=== PATIENT | female | born 1970 ===

== ENCOUNTER → 2020-03-21 13:18 | Outpatient (BNVA) | payer OTHER, SELFPAY | PROVIDERS: Visit Provider Obstetrics & Gynecology | DX: Z76.89 Persons encountering health services in other specified circumstances (principal) ==

== ENCOUNTER 2020-08-21 13:02 | Outpatient (REF) | payer OTHER, SELFPAY ==
--- NOTE | ~2020-08-21 | MM_ITS ---
EXAMINATION: MM SCREENING DIGITAL BREAST TOMOSYNTHESIS, BILATERAL CLINICAL INFORMATION: Screening. Asymptomatic. The lifetime risk of breast cancer based on the Tyrer-Cuzick Model is 7%. COMPARISON: Mammography: 03/05/2019, 07/05/2016 TECHNIQUE: Digital breast tomosynthesis is performed in both the craniocaudal and mediolateral oblique views along with computer-aided detection (CAD). Synthesized 2D images are generated from the tomosynthesis. FINDINGS: There are scattered areas of fibroglandular density (ACR BI-RADS breast composition Category b). There is fine fibronodular parenchymal pattern. Left breast shows no interval mass or architectural abnormality or developing density. Neither breast shows abnormal calcifications. The bilateral axilla and skin contours are unremarkable. Right CC view has small nodular asymmetric density just lateral to posterior nipple line, 5 cm from nipple, without definite correlate on MLO view. Patient will be recalled for additional imaging. MM/MM tomosynthesis screening BI IMPRESSION: 1. Right: Small asymmetric density 5 cm from nipple just lateral to posterior nipple line on CC view. 2. Left: No mammographic evidence of malignancy. ASSESSMENT: BI-RADS 0: Incomplete - Need Additional Imaging Evaluation RECOMMENDATION: 1. Additional views of the right breast (3D rolled CC x 2; 3D spot CC). 2. Targeted ultrasound if warranted after review of the additional views. 3. Radiology department staff will contact the patient for additional imaging. This patient's information was entered into a reminder system with a target due date for their next mammogram.
== END 2020-08-21 13:03 | disposition home or self-care (01) ==
LOC: HO.MAMMO 13:02
PROVIDERS: PCP Internal Medicine; Visit Provider Obstetrics & Gynecology
DX: Z12.31 Encounter for screening mammogram for malignant neoplasm of breast (principal)
CPT/HCPCS: 77063; 77067

== ENCOUNTER 2020-09-01 14:38 | Outpatient (REF) | payer OTHER, SELFPAY ==
--- NOTE | ~2020-09-01 | US_ITS ---
EXAMINATION: US DIAGNOSTIC ULTRASOUND BREAST, RIGHT CLINICAL INFORMATION: Right breast density. COMPARISON: Mammography of same day as well as studies dating back to July 05, 2016. TECHNIQUE: Ultrasound of the breast is performed with real-time rahman scale imaging and color Doppler. FINDINGS: Targeted right breast ultrasound was performed at approximately the 9:00 position 4 cm from nipple there is a minimally complex cyst measuring 5 x 2 x 4 mm in size. There is mildly increased through sound transmission. No distal sound shadowing is seen. Results are provided to the patient at time of visit by the technologist. US/US breast RT limited IMPRESSION: Probable benign findings of the right breast as described for which six-month follow-up ultrasound evaluation as well as spot magnification views are recommended. ASSESSMENT: BI-RADS 3: Probably Benign RECOMMENDATION: Diagnostic mammography in 6 months.
--- NOTE | ~2020-09-01 | MM_ITS ---
EXAMINATION: MM DIAGNOSTIC DIGITAL BREAST TOMOSYNTHESIS, RIGHT TARGETED RIGHT BREAST ULTRASOUND CLINICAL INFORMATION: Density. COMPARISON: Mammography: 08/21/2020 and studies dating back to 07/05/2016. TECHNIQUE: Digital breast tomosynthesis is performed. 2D images are generated from the tomosynthesis. The following views are obtained: Spot compression craniocaudal views and full-field craniocaudal rolled medial and lateral views. Spot magnification views of the right breast in craniocaudal and 90 degree mediolateral views. Targeted right breast ultrasound. FINDINGS: The breasts are heterogeneously dense, which may obscure small masses (ACR BI-RADS breast composition Category c). Mammography shows persistence of an approximately 6 mm in diameter well-circumscribed density lying approximately 5 cm from the nipple. No associated spiculation or microcalcifications are seen. There is also noted to be a grouping of microcalcifications about the upper outer aspect of the right breast for which supplementary films are performed. The calcifications appear to have been present to some degree dating back to 07/05/2016 but are more evident now. Six-month followup is recommended. Targeted right breast ultrasound was performed at approximately the 9 o'clock position 4 cm from the nipple. There is a minimally complex cyst measuring 5 x 2 x 4 mm in size. There is mildly increased through sound transmission. No distal sound shadowing is seen. Results are provided to the patient at time of visit by the technologist. MM/MM tomosynthesis added views R IMPRESSION: Probable benign findings of the right breast as described for which six-month follow-up ultrasound evaluation as well as spot magnification views are recommended. ASSESSMENT: BI-RADS 3: Probably Benign. RECOMMENDATION: Diagnostic mammography in 6 months. This patient's information was entered into a reminder system with a target due date for their next mammogram.
== END 2020-09-01 14:39 | disposition home or self-care (01) ==
LOC: HO.MAMMO 14:38
PROVIDERS: Visit Provider Obstetrics & Gynecology
DX: R92.2 Inconclusive mammogram (principal)
CPT/HCPCS: 76642; 77061; 77065

== ENCOUNTER 2021-01-29 15:28 | Emergency (ER) | payer OTHER, SELFPAY ==
[2021-01-29 15:56] VITALS: BP 124/80; PULSE 78; RESP 16; TEMP 37.1; O2SAT 99; BMI 32.5
[2021-01-29] MEDS: Ondansetron ODT 4 MG TAB.RAPDIS TRANSLINGU (16:00)
[2021-01-29] MEDS: Acetaminophen 325 MG TABLET 650 MG PO (17:10)
== END 2021-01-29 20:37 | disposition left against medical advice (07) ==
PROVIDERS: Emergency Provider Emergency Medicine; PCP Internal Medicine
DX: R10.9 Unspecified abdominal pain (principal)
CPT/HCPCS: 99283

== ENCOUNTER 2021-03-15 17:00 | Emergency (ER) | payer OTHER, SELFPAY ==
--- NOTE | ~2021-03-15 | CT_ITS ---
EXAMINATION: NONCONTRAST HEAD CT NONCONTRAST MAXILLOFACIAL CT NONCONTRAST CERVICAL SPINE CT INDICATION INFORMATION: Chest pain. Syncopal episode. COMPARISON: None. TECHNIQUE: Separate noncontrast CT examinations of the head, maxillofacial bones, and cervical spine were performed. Coronal and sagittal images were created for each examination at the technologist workstation. This CT examination was performed using dose optimization techniques as appropriate, variously including the following: *Automated exposure control *Adjustment of mA and/or kV according to patient size (this includes techniques or standardized protocols for targeted exams where dose is matched to indication/reason for exam; i.e. extremities or head) *Use of iterative reconstruction technique DLP: 265 mGy-cm FINDINGS: Head: There is no evidence of acute intracranial hemorrhage or territorial infarction. No abnormal mass effect or midline shift is seen. Child to white matter differentiation is well preserved. No extra-axial fluid collections are identified. No hydrocephalus. No significant volume loss. There is no abnormal attenuation within the brain parenchyma. No acute soft tissue abnormality. No calvarial fracture. The mastoid air cells are well aerated. Maxillofacial: No acute maxillofacial fractures are seen. There is mucosal thickening of the paranasal sinuses and ethmoid air cells. Other paranasal sinuses and the mastoids are clear. The mandibular heads are well-seated in the condylar fossa. The orbits demonstrate a normal appearance bilaterally. The globes are intact, and there are no suspicious findings to suggest retrobulbar hemorrhage. Cervical spine: There is straightening of the normal cervical lordosis with anatomic alignment of the vertebral bodies and posterior elements. The atlantoaxial and atlantooccipital articulations are intact. Vertebral body heights are maintained. There is multilevel intervertebral disc space narrowing with endplate osteophyte formation and facet arthropathy. No evidence of acute fracture. No prevertebral soft tissue swelling. There is biapical pleural thickening/scarring. There is a multinodular goiter with a dominant lesion in the right lobe measuring up to 3.3 cm and a dominant lesion in the left lobe of the thyroid measuring up to 2.[address]/CT cervical spine wo con IMPRESSION: No acute intracranial abnormalities. No acute maxillofacial fractures. No acute cervical spinal fractures or subluxation. Incidentally noted is made of a multinodular goiter. Further evaluation with a nonemergent thyroid ultrasound is recommended.
--- NOTE | ~2021-03-15 | CT_ITS ---
EXAMINATION: CT ANGIOGRAM OF THE CHEST WITH AND WITHOUT CONTRAST (CT PULMONARY ANGIOGRAM FOR PE) CLINICAL INFORMATION: Sudden onset chest pain and syncope. COMPARISON: Thyroid ultrasound dated 01/11/2016. TECHNIQUE: Prior to contrast administration, noncontrast localization images were obtained. Subsequently, multidetector volumetric imaging was performed from the thoracic inlet to below the diaphragms following the administration of 85 mL Omnipaque 350 intravenous contrast. No contrast reaction reported. Sagittal, coronal, and MIP oblique sagittal reformatted images were obtained on the CT workstation, uploaded to PACS, and reviewed. This CT examination was performed using dose optimization techniques as appropriate, variously including the following: *Automated exposure control *Adjustment of mA and/or kV according to patient size (this includes techniques or standardized protocols for targeted exams where dose is matched to indication/reason for exam; i.e. extremities or head) *Use of iterative reconstruction technique Total exam dose-length product 680 mGy-cm FINDINGS: QUALITY OF STUDY/CONTRAST BOLUS: Satisfactory. PULMONARY ARTERIES: No central or segmental pulmonary emboli. THORACIC AORTA: No aneurysm or dissection. LUNG: No focal consolidation, nodules or masses. PLEURA: No pleural effusion or pneumothorax. MEDIASTINUM: Normal heart size. No pericardial effusion. No hilar or mediastinal lymphadenopathy. No evidence of septal bowing or right heart strain. Multiple bilateral thyroid nodules which appear to have increased in size when compared to the ultrasound from 2016. CHEST WALL/AXILLA: No axillary or internal mammary lymphadenopathy. OSSEOUS STRUCTURES: No acute or suspicious osseous abnormality. UPPER ABDOMEN: Unremarkable. No reflux of contrast into the hepatic veins to suggest elevated right heart pressures. CT/CT angio chest PE protocol IMPRESSION: 1. No CT angiographic evidence of acute pulmonary embolism. 2. No pulmonary nodule, mass, or airspace consolidation. 3. Multiple bilateral thyroid nodules which appear to have increased in size when compared to the ultrasound from 2016. Nonemergent follow-up thyroid ultrasound could help further evaluate. VTE: Negative
--- NOTE | ~2021-03-15 | CT_ITS ---
EXAMINATION: CT ABDOMEN AND PELVIS WITH CONTRAST CLINICAL INFORMATION: Abdominal pain COMPARISON: None TECHNIQUE: Multidetector volumetric images were obtained from the superior aspect of the liver through the pubic symphysis following administration 85 mL of Omnipaque 350 intravenous contrast. Sagittal and coronal reformatted images were obtained on the technologist's workstation. Oral contrast: No This CT examination was performed using dose optimization techniques as appropriate, variously including the following: *Automated exposure control *Adjustment of mA and/or kV according to patient size (this includes techniques or standardized protocols for targeted exams where dose is matched to indication/reason for exam; i.e. extremities or head) *Use of iterative reconstruction technique DLP: 970 mGy-cm FINDINGS: LUNG BASES: The visualized lung bases are unremarkable. LIVER, GALLBLADDER, AND BILIARY TREE: The liver is normal in size, shape, and attenuation. No focal hepatic lesion or biliary ductal dilatation is present. The gallbladder is either surgically absent or collapsed. PANCREAS: Unremarkable. SPLEEN: Unremarkable. ADRENAL GLANDS: Unremarkable. KIDNEYS AND URETERS: The kidneys are normal in size, shape, and attenuation. No hydronephrosis, hydroureter, or calculi seen. No perinephric stranding. BLADDER: Unremarkable. GASTROINTESTINAL TRACT: Small and large bowel loops are unremarkable. The appendix is surgically absent. ABDOMINAL WALL: No significant hernia is appreciated. LYMPH NODES: Normal. VASCULAR: Unremarkable. PELVIC VISCERA: Unremarkable. OSSEOUS STRUCTURES: Unremarkable. CT/CT abdomen pelvis w con IMPRESSION: No significant abnormality. Fleischner guidelines were followed.
--- NOTE | 2021-03-15 17:09 | ECG_ITS ---
Test Reason : fall Blood Pressure : / mmHG Vent. Rate : 077 BPM Atrial Rate : 077 BPM P-R Int : 162 ms QRS Dur : 084 ms QT Int : 404 ms P-R-T Axes : 022 051 016 degrees QTc Int : 457 ms Normal sinus rhythm Nonspecific T wave abnormality Inferior leads Abnormal ECG No previous ECGs available Referred By: Yohana Tyler Electronically Signed By:YAQUELIN MITCHELL MD
[2021-03-15 17:10] VITALS: BP 123/80; PULSE 78; RESP 19; TEMP 36.6; O2SAT 99; BMI 31.1
[2021-03-15] MEDS: 0.9 % Sodium Chloride 1,000 ML 999 ML IVCONT (17:19)
[2021-03-15 17:38] LABS: Basophils Percent Auto 0.2 % (0-2); Eosinophils Absolute Auto 0.2 X10*3/uL (0.0-0.4); Hematocrit 38.1 % (37.0-47.0); Hemoglobin 12.6 g/dl (12.0-16.0); Imm Gran Abs Auto 0.03 X10*3/uL (0.00-0.03); Imm Gran Pct Auto 0.4 % (0.0-0.4); Lymphocytes Absolute Auto 3.2 X10*3/uL (1.2-4.9); Lymphocytes Percent Auto 39.7 % (20-40); Mean Corpuscular HGB Conc 33.1 g/dl (31.0-35.0); Mean Corpuscular Hemoglobin 28.9 pg (27.0-33.0); Mean Corpuscular Volume 87.4 fL (80.0-98.0); Mean Platelet Volume 10.4 fL (9.4-12.3); Monocytes Absolute Auto 0.6 X10*3/uL (0.1-1.2); Monocytes Percent Auto 7.7 % (2-11); Neutrophils Absolute Auto 3.9 x10*3/uL (2.0-8.3); Platelet Count 329 X10*3/uL (160-400); Red Blood Count 4.36 X10*6/uL (4.20-5.50); Red Cell Distribution Width 15.6 % (11.0-16.0)
[2021-03-15 17:39] LABS: MANUAL DIFF FLAG NO
[2021-03-15 17:49] LABS: INTERNATIONAL NORM RATIO 1.1 (0.9-1.1); Prothrombin Time 12.4 SEC (9.9-13.0)
[2021-03-15 17:55] LABS: Alanine Aminotransferase 15 U/L (0-31); Alkaline Phosphatase 68 U/L (39-117); Anion Gap 13 (12-20); Aspartate Amino Transferase 16 U/L (5-31); Bilirubin Total < 0.2 mg/dL (0.0-1.0); Blood Urea Nitrogen 15 mg/dL (9-16); Calcium 9.4 mg/dL (8.4-10.2); Carbon Dioxide 28 mmol/L (22-29); Chloride 105 mmol/L (96-108); Creatinine Clr Calc Pharmacy 62.1; Estimated Glomerular Filt Rate 56; Glucose Random 79 mg/dL (60-115); Magnesium 1.9 mg/dL (1.6-2.6); Potassium 4.1 mmol/L (3.3-5.1); Sodium 142 mmol/L (135-145)
[2021-03-15 17:57] LABS: HCG Quantitative < 2 mIU/mL
[2021-03-15 17:58] LABS: B Type Natriuretic Peptide < 10 pg/mL (<100); Troponin-I High Sensitivity < 3.5 ng/L (<3.5-17.0)
--- NOTE | 2021-03-15 18:34 | ED_ITS ---
HPI - Syncope General Chief Complaint: Syncope Stated Complaint: fall dizzy Time Seen by Provider: 03/15/21 17:05 Source: patient, family and EMS Mode of arrival: EMS Limitations: language barrier (Romanian-speaking) History of Present Illness HPI narrative: 50-year-old female with a past medical history of hyperchol esterolemia and vitamin-D deficiency presenting to the ED via EMS a C-collar in place after she developed sudden onset of chest pain while she was at home with her daughters and her /family serving Thanksgiving dinner when she started having epigastric/midsternal chest pain she tried to lean over the counter and this is the last thing she can remember. Her daughters and her report that when she went to lean on the counter she actually went down pretty hard hit her chin then she fell backwards hitting her head and she had LOC for a few seconds. She did not have prolonged downtime. She reports that she has never had this in the past. Her reports that she recently had an appendectomy approximately 1 month ago. She denies any symptoms at this time reports that she feels completely normal. She denies any dizziness, change in vision, ear pain, sore throat, cough, nasal congestion, chest pain at this time, shortness of breath, dyspnea on exertion, orthopnea, palpitations, nausea/vomiting/diarrhea, constipation, rashes, focal weakness or general weakness, recent travel or sick contacts or any other symptoms complaints or concerns at this time. Denies being on any blood thinners. 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) Prodromal symptoms: chest pain Witnessed: Yes - by Other (Daughters and ) Context: other (While she was in the kitchen with her family serving some [employer] dinner) Injuries sustained associated with event: face (Chin) Current symptoms: none and back to baseline Treatments prior to arrival: none Related Data Home Medications Medication Instructions Recorded Confirmed cholecalciferol (vitamin D3) 25 25 mcg PO DAILY 04/03/20 07/12/20 mcg (1,000 unit) tablet rosuvastatin 5 mg tablet 5 mg PO DAILY 04/03/20 07/12/20 Previous Rx's Medication Instructions Recorded meclizine 25 mg tablet 25 mg PO TID PRN 30 Days #90 tab 04/03/20 Allergies Allergy/AdvReac Type Severity Reaction Status Date / Time No Known Allergies Allergy Unverified 08/22/20 12:57 Review of Systems Review of Systems: Constitutional : No Weight loss, No Fever, No Chills, No Night Sweats, No Fatigue, No Malaise ENT/Mouth : No Hearing loss, No Ear Pain, No Nasal Congestion, No Sinus Pain, No Hoarseness, No sore throat, No Rhinorrhea, No Swallowing Difficulty Eyes: No Eye Pain, No Swelling, No Redness, No Foreign Body, No Discharge, No Vision Changes Cardiovascular : + resolved Chest pain, No SOB, No Dyspnea on Exertion, No Orthopnea, No Edema, No Palpitations Respiratory : No Cough, No Sputum, No Wheezing, No Smoke Exposure, No Dyspnea Gastrointestinal : No Nausea, No Vomiting, No Diarrhea, No Constipation, No abdominal Pain, No Hematochezia, No Melena Genitourinary : no irregular bleeding, No Dysuria, No Urinary Frequency, No Hematuria, No Urinary Incontinence, No Urgency, No Flank Pain, No Urinary Flow Changes, No Hesitancy Musculoskeletal : No joint pain, No Myalgias, No Joint Swelling Skin : No Skin Lesions, No rash Neuro : + syncopy c head injury and loc for seconds, No Weakness, No Numbness, No Paresthesias, No Dizziness, No Headache Psych : No Anxiety/Panic, No Depression, No SI/HI/AH/VH, No Social Issues, Heme/Lymph: No Bruising, No Bleeding,No Lymphadenopathy Endocrine : No Polyuria, No Polydipsia, No Temperature Intolerance Yes all other systems are reviewed and are negative [facility] Past Medical History Attestation statement: The following information was validated with the patient. Medical History Dizziness Knee pain Pure hypercholesterolemia Right knee pain Vitamin D deficiency Well woman exam Surgical History History of cholecystectomy Family History Family History Maternal Grandmother Diabetes Paternal Grandmother Hypertension Stroke Father No problems noted. Mother No problems noted. Maternal Aunt Breast cancer Sister No problems noted. Son No problems noted. Son No problems noted. Daughter No problems noted. Daughter No problems noted. Social History Social History Alcohol intake: never Advance Directives: No Advance Directives Information Provided: Yes Sexual orientation: Straight/Heterosexual Gender identity: Female Physical Exam 2 Vital Signs: Vital Signs: Last Vital Signs Temp 97.6 F 03/15/21 19:26 Pulse 73 03/15/21 19:26 Resp 18 03/15/21 19:26 BP 107/66 03/15/21 19:26 Pulse Ox 99 03/15/21 19:26 Body Mass Index 31.1 Vital signs have been reviewed as normal and appeared to be correct. Blood pressure normal. Heart rate normal. Respiration rate normal. Temperature normal. Oxygen saturation normal. Appearance: Alert. Oriented X3. No acute distress. Head: Normal external exam. Normocephalic. Atraumatic. Able to rotate head bilaterally. No Luz signs noted. No raccoon eyes noted. Eyes: PERRLA. EOMI. No nystagmus noted. Conjunctiva and sclera normal. Eyelids normal. Corneal reflex normal. ENT: EAC normal. TM's Normal. No septal hematoma noted. No hemotympanum noted. Hearing normal. Pharynx normal. Uvula midline. tongue midline. Moist mucous membranes. No trismus noted. No drooling noted. No muffled voice noted. No nystagmus noted. No dental injury is noted. Neck: Normal inspection. Neck supple. FROM. No adenopathy. Trachea midline. Thyroid Normal. No meningeal signs. No neck mass noted. Patient has no obvious signs of trauma and no tenderness although will leave C-collar on due to mechanism of injury. CVS: Normal heart rate and rhythm. Heart sound normal. No murmurs noted. Pulses normal throughout. Respiratory: No respiratory distress. Painless inspiration. Breath sounds normal. No wheezes/rales/rhonchi noted. Chest nontender. No accessory muscle u geno noted or decreased air movement noted. Abdomen: Soft and nontender. Bowel sounds normal in all 4 quadrants. No distention noted. No organomegaly noted. No visible injury noted. Back: No CVA tenderness. Full range of motion noted. Skin: Skin warm and dry. Normal skin color. Normal skin turgor. No rashes/lesions/lacerations noted. Extremities: No lower extremity edema. No calf tenderness is noted. Extremities exhibit normal range of motion. Extremities nontender. Able to shrug shoulders bilaterally and keep up against resistance. Neuro: Oriented X 3. No motor deficit. No sensory deficit. Reflexes normal. Moving all extremities. No focal motor deficits. Cranial nerves II-XI intact bilaterally. Facial strength normal. Normal cognition. Speech normal. Strength 5/5 throughout. No pronator drift. No tremor noted. No fasciculations noted. No rigidity noted. Muscle tone normal throughout. No asterixis noted. Hwysdd-op-kjns test normal. Heel to jang test normal. Rapid alternating movement upper extremity normal. Rapid alternating movement lower extremity normal. Hand drop from overhead Misses face. NIHSS score 0. Course Course Course Narrative: 17:15pm - 50-year-old female presenting to the ED via EMS a C-collar in place after she developed sudden onset of chest pain while she was at home with her daughters and her /family serving Thanksgiving dinner when she started having epigastric/midsternal chest pain she tried to lean over the counter and this is the last thing she can remember. Her daughters and her report that when she went to lean on the counter she actually went down pretty hard hit her chin then she fell backwards hitting her head and she had LOC for a few seconds. She did not have prolonged downtime. She reports that she has never had this in the past. Her reports that she recently had an appendectomy approximately 1 month ago. She denies any symptoms at this time reports that she feels completely normal. She denies being on blood thinners. Plan: CT scan of brain/cervical spine/facial bones/CTA of chest for PE, CT scan of abdomen pelvis with IV contrast, labs, EKG, orthostatics vitals then re- evaluate. Reevaluation(s) Reevaluation #1: - labs reviewed and all within normal limits including troponin. Negative test. - EKG was normal sinus rhythm no acute ischemic changes were noted. - patient will need a repeat troponin at 20:00 due to her symptoms started right before arrival. - patient pending CT scan of brain/cervical spine/facial bones/CTA of chest and CT scan abdomen pelvis IV contrast. - Sign out to KYLAH Syed pending above Time: 19:31 [facility] - Syncope Medical Records Attestation: I reviewed the patient's medical records. Lab Data Attestation: I reviewed the patient's lab results. Result diagrams: 03/15/21 17:32 03/15/21 17:32 Labs: Lab Results 03/15/21 03/15/21 03/15/21 Range/Units 17:32 17:32 17:32 WBC 8.0 (4.8-10.8) X10*3/uL RBC 4.36 (4.20-5.50) X10*6/uL Hgb 12.6 (12.0-16.0) g/dl Hct 38.1 (37.0-47.0) % MCV 87.4 (80.0-98.0) fL MCH 28.9 (27.0-33.0) pg MCHC 33.1 (31.0-35.0) g/dl RDW 15.6 (11.0-16.0) % Plt Count 329 (160-400) X10*3/uL MPV 10.4 (9.4-12.3) fL Immature Gran % (Auto) 0.4 (0.0-0.4) % Neut % (Auto) 49.0 (45-73) % Lymph % (Auto) 39.7 (20-40) % Mcintosh % (Auto) 7.7 (2-11) % Eos % (Auto) 3.0 (0-4) % Baso % (Auto) 0.2 (0-2) % Lymph # (Auto) 3.2 (1.2-4.9) X10*3/uL Mcintosh # (Auto) 0.6 (0.1-1.2) X10*3/uL Eos # (Auto) 0.2 (0.0-0.4) X10*3/uL Baso # (Auto) 0.0 (0.0-0.2) X10*3/uL Abs Immat Gran (auto) 0.03 (0.00-0.03) X10*3/uL Absolute Neuts (auto) 3.9 (2.0-8.3) x10*3/uL Absolute Nucleated RBC 0.000 (0.0-0.012) X10*3/uL Nucleated RBC % (auto) 0.0 (0.0-0.2) /100WBC PT 12.4 (9.9-13.0) SEC INR 1.1 (0.9-1.1) Sodium 142 (135-145) mmol/L Potassium 4.1 (3.3-5.1) mmol/L Chloride 105 (96-108) mmol/L Carbon Dioxide 28 (22-29) mmol/L Anion Gap 13 (12-20) BUN 15 (9-16) mg/dL Creatinine 1.03 (0.5-1.4) mg/dL Estim Creat Clear Calc 62.1 Estimated GFR 56 Random Glucose 79 (60-115) mg/dL Calcium 9.4 (8.4-10.2) mg/dL Magnesium 1.9 (1.6-2.6) mg/dL Total Bilirubin < 0.2 (0.0-1.0) mg/dL AST 16 (5-31) U/L ALT 15 (0-31) U/L Alkaline Phosphatase 68 (39-117) U/L Total Creatine Kinase 105 (26-140) U/L Troponin I High Sens (<3.5-17.0) ng/L B-Natriuretic Peptide (<100) pg/mL Total Protein 7.0 (6.5-8.0) g/dL Albumin 4.0 (3.5-5.0) g/dL Beta HCG, Quant mIU/mL 03/15/21 03/15/21 Range/Units 17:32 17:32 WBC (4.8-10.8) X10*3/uL RBC (4.20-5.50) X10*6/uL Hgb (12.0-16.0) g/dl Hct (37.0-47.0) % MCV (80.0-98.0) fL MCH (27.0-33.0) pg MCHC (31.0-35.0) g/dl RDW (11.0-16.0) % Plt Count (160-400) X10*3/uL MPV (9.4-12.3) fL Immature Gran % (Auto) (0.0-0.4) % Neut % (Auto) (45-73) % Lymph % (Auto) (20-40) % Mcintosh % (Auto) (2-11) % Eos % (Auto) (0-4) % Baso % (Auto) (0-2) % Lymph # (Auto) (1.2-4.9) X10*3/uL Mcintosh # (Auto) (0.1-1.2) X10*3/uL Eos # (Auto) (0.0-0.4) X10*3/uL Baso # (Auto) (0.0-0.2) X10*3/uL Abs Immat Gran (auto) (0.00-0.03) X10*3/uL Absolute Neuts (auto) (2.0-8.3) x10*3/uL Absolute Nucleated RBC (0.0-0.012) X10*3/uL Nucleated RBC % (auto) (0.0-0.2) /100WBC PT (9.9-13.0) SEC INR (0.9-1.1) Sodium (135-145) mmol/L Potassium (3.3-5.1) mmol/L Chloride (96-108) mmol/L Carbon Dioxide (22-29) mmol/L Anion Gap (12-20) BUN (9-16) mg/dL Creatinine (0.5-1.4) mg/dL Estim Creat Clear Calc Estimated GFR Random Glucose (60-115) mg/dL Calcium (8.4-10.2) mg/dL Magnesium (1.6-2.6) mg/dL Total Bilirubin (0.0-1.0) mg/dL AST (5-31) U/L ALT (0-31) U/L Alkaline Phosphatase (39-117) U/L Total Creatine Kinase (26-140) U/L Troponin I High Sens < 3.5 (<3.5-17.0) ng/L B-Natriuretic Peptide < 10 (<100) pg/mL Total Protein (6.5-8.0) g/dL Albumin (3.5-5.0) g/dL Beta HCG, Quant < 2 mIU/mL ECG Data Attestation: I personally reviewed and interpreted this ECG as follows: ECG interpretation date: 03/15/21 ECG interpretation time: 05:13 Interpretation: Normal sinus rhythm with a ventricular rate of 77 with a normal MT interval nonspecific T-wave inversion in lead 3 otherwise no other changes and no acute ischemic changes are noted. No prior EKGs in our system to compare to. Critical Care Time Critical Care Time Critical Care Time: Yes Total Critical Care Time: 60 Attestation: I personally attest to this time spent taking care of the patient Discharge Plan Discharge Clinical Impression: Chest pain, Abdominal pain, epigastric, Syncope, Head injury, acute, with loss of consciousness Patient Disposition: Still a Patient Prescriptions: No Action cholecalciferol (vitamin D3) 25 mcg (1,000 unit) tablet 25 mcg PO DAILY RF: 0 rosuvastatin 5 mg tablet 5 mg PO DAILY RF: 0 meclizine 25 mg tablet 25 mg PO TID PRN (Reason: dizziness) 30 Days Qty: 90 RF: 0
[2021-03-15] MEDS: iohexoL 350 MG/ML 100 ML INFUS..BTL IV (19:05)
[2021-03-15 19:26] VITALS: BP 107/66; PULSE 73; RESP 18; TEMP 36.4; O2SAT 99
[2021-03-15 20:35] LABS: Troponin-I High Sensitivity < 3.5 ng/L (<3.5-17.0)
== END 2021-03-15 21:42 | disposition home or self-care (01) ==
PROVIDERS: Physician Assistant Medical; Emergency Provider Student in an Organized Health Care Education/Training Program
DX: S06.9X1A Unspecified intracranial injury with loss of consciousness of 30 minutes or less, initial encounter (principal); W17.89XA Other fall from one level to another, initial encounter; R07.9 Chest pain, unspecified; R10.13 Epigastric pain; R55 Syncope and collapse; Y93.G1 Activity, food preparation and clean up; Y92.010 Kitchen of single-family (private) house as the place of occurrence of the external cause; Y99.9 Unspecified external cause status
CPT/HCPCS: 36415; 70450; 70486; 71275; 72125; 74177; 80053; 82550; 83735; 83880; 84484; 84702; 85025; 85610; 93005; 96360; 99284; 99291; Q9967

== ENCOUNTER → 2021-03-26 13:59 | Outpatient (BNVA) | payer OTHER, SELFPAY | PROVIDERS: PCP Internal Medicine; Visit Provider Obstetrics & Gynecology ==

== ENCOUNTER 2021-03-28 14:10 | Outpatient (REF) | payer OTHER, SELFPAY ==
--- NOTE | ~2021-03-28 | MM_ITS ---
EXAMINATION: MM DIAGNOSTIC DIGITAL BREAST TOMOSYNTHESIS, RIGHT CLINICAL INFORMATION: Six-month follow up right breast calcifications and circumscribed density. The lifetime risk of breast cancer based on the Tyrer-Cuzick Model is 10.2%. COMPARISON: Mammography: 09/01/2020 and studies dating back to 07/05/2016. TECHNIQUE: Digital breast tomosynthesis is performed in both the craniocaudal and mediolateral oblique views along with computer-aided detection (CAD). Synthesized 2D images are generated from the tomosynthesis. Additional spot magnification views in craniocaudal and 90 degree mediolateral views performed. FINDINGS: The breasts are heterogeneously dense, which may obscure small masses (ACR BI-RADS breast composition Category c). Previously noted density about the lateral aspect of the right breast is not identified on today's study and likely represented a cyst that has now resolved. Grouping of calcifications about the upper outer aspect of the right breast do not appear to have been changed since previous study. Recommend 6 month bilateral mammography with right breast magnification views for continued surveillance. Results are provided to the patient at time of visit by the technologist. MM/MM tomosynthesis diagnostic RT IMPRESSION: No significant change from previous examination with probable resolution of right breast cyst as described. Six month follow up bilateral mammography with right breast magnification views recommended. ASSESSMENT: BI-RADS 3: Probably Benign. RECOMMENDATION: Diagnostic mammography in 6 months. This patient's information was entered into a reminder system with a target due date for their next mammogram.
== END 2021-03-28 14:11 | disposition home or self-care (01) ==
LOC: HO.MAMMO 14:10
PROVIDERS: PCP Nurse Practitioner Family; Visit Provider Obstetrics & Gynecology
DX: R92.2 Inconclusive mammogram (principal)
CPT/HCPCS: 77061; 77065

== ENCOUNTER 2021-04-25 12:34 | Outpatient (REF) | payer OTHER, SELFPAY ==
--- NOTE | 2021-04-25 12:39 | EEG_ITS ---
This is a 16-channel EEG with an EKG lead. The patient is reported awake during the tracing. Background EEG rhythm during most of the tracing is 12 to 14 hertz, 5 to 50 microvolt posteriorly, lower amplitude fast anteriorly. Intermittently sharply controlled theta range, asymmetric activity was noted in the right hemispheric leads which at times was clearly sharp wave type with phase reversal at T4. It lasted 1 to few seconds at a time. Photic stimulation did not produce any significant driving. Hyperventilation was not performed. Cardiac lead did not reveal any significant abnormality. IMPRESSION: Abnormal EEG suggestive of underlying tendency for partial or complex partial seizure disorder with right temporal focus. MD THELMA Gutiérrez/AGNIESZKAL / [id number]
== END 2021-04-25 12:35 | disposition home or self-care (01) ==
LOC: HO.NEURO 12:34
PROVIDERS: Visit Provider Nurse Practitioner Family
DX: R56.9 Unspecified convulsions (principal); R55 Syncope and collapse
CPT/HCPCS: 95816

== ENCOUNTER → 2021-05-22 13:06 | Outpatient (BNVA) | payer OTHER, SELFPAY | PROVIDERS: PCP Internal Medicine; Referring Provider Nurse Practitioner Family; Visit Provider Internal Medicine | DX: R55 Syncope and collapse (principal); R07.2 Precordial pain | CPT/HCPCS: 93005; 99202 ==

== ENCOUNTER → 2021-06-07 10:39 | Outpatient (REF) | payer OTHER, SELFPAY ==
--- NOTE | 2021-06-07 10:45 | HM_ITS ---
Conclusion: 1. Patient was monitored for total period of 14 days and 15 hours 2. Baseline was normal sinus rhythm with average heart of 83 beats per minute 3. Very rare ectopy noted 4. 1 episode of Mobitz type 1 second-degree AV block noted at 16:20 on 06/20/2021 5. One pause of 2.6 seconds noted on 06/10/2021 at 04:29 6. 7 short runs of supraventricular tachycardia, longest 14 beats 7. No patient reported events MTDD
== END ==
LOC: HO.CARD 10:39
PROVIDERS: PCP Internal Medicine; Visit Provider Internal Medicine
DX: R55 Syncope and collapse (principal)
CPT/HCPCS: 93246

== ENCOUNTER 2021-06-25 09:13 | Outpatient (REF) | payer OTHER, SELFPAY ==
--- NOTE | ~2021-06-25 | XR_ITS ---
EXAMINATION: XR KNEE, LEFT CLINICAL INFORMATION: Knee pain. COMPARISON: 07/24/2017 TECHNIQUE: Three views of the left knee. FINDINGS: Alignment is anatomic. There is a moderate suprapatellar joint effusion. Mild narrowing of the medial joint space and small marginal osteophytes in all 3 compartments. No fracture. XR/XR knee LT 3V IMPRESSION: Moderate suprapatellar effusion and mild tricompartmental degenerative changes.
[2021-06-25 10:40] LABS: Alanine Aminotransferase 15 U/L (0-31); Albumin Level 3.9 g/dL (3.5-5.0); Alkaline Phosphatase 62 U/L (39-117); Anion Gap 10 (12-20); Aspartate Amino Transferase 17 U/L (5-31); Bilirubin Total 0.4 mg/dL (0.0-1.0); Blood Urea Nitrogen 7 mg/dL (9-16); Calcium 9.4 mg/dL (8.4-10.2); Carbon Dioxide 28 mmol/L (22-29); Chloride 106 mmol/L (96-108); Cholesterol 191 mg/dL; Estimated Glomerular Filt Rate > 60; Glucose Fasting 93 mg/dL (60-99); HDL Cholesterol 43 mg/dL; LDL Cholesterol Calculated 130 mg/dl; Potassium 4.3 mmol/L (3.3-5.1); Sodium 140 mmol/L (135-145); Total Protein 6.7 g/dL (6.5-8.0); Triglycerides 90 mg/dL
[2021-06-29 13:10] LABS: Vitamin D 25-OH, D2 <4 ng/mL; Vitamin D 25-OH, D3 45 ng/mL; Vitamin D 25-OH, Total 45 ng/mL (30-100)
== END 2021-06-25 09:14 | disposition home or self-care (01) ==
LOC: HO.LAB 09:13
PROVIDERS: PCP Internal Medicine; Visit Provider Internal Medicine
DX: M25.561 Pain in right knee (principal); E78.00 Pure hypercholesterolemia, unspecified; E78.5 Hyperlipidemia, unspecified; E55.9 Vitamin D deficiency, unspecified
CPT/HCPCS: 36415; 73562; 80053; 80061; 82306

== ENCOUNTER 2021-09-28 12:58 | Outpatient (REF) | payer OTHER, SELFPAY ==
--- NOTE | ~2021-09-28 | MM_ITS ---
EXAMINATION: MM DIAGNOSTIC DIGITAL BREAST TOMOSYNTHESIS, BILATERAL CLINICAL INFORMATION: Right breast calcifications. The lifetime risk of breast cancer based on the Tyrer-Cuzick Model is 14.2%. COMPARISON: Mammography: 03/28/2021 and studies dating back to 07/05/2016. TECHNIQUE: Digital breast tomosynthesis is performed in both the craniocaudal and mediolateral oblique views along with computer-aided detection (CAD). Synthesized 2D images are generated from the tomosynthesis. Additional spot magnification views of the right breast in craniocaudal and 90-degree mediolateral views performed. FINDINGS: The breasts are heterogeneously dense, which may obscure small masses (ACR BI-RADS breast composition Category c). There are no new significant masses, abnormal calcifications, or other abnormalities. There is stability of tight grouping of calcifications about the superior aspect of the right breast. Results are provided to the patient at time of visit by the technologist. MM/MM tomosynthesis diagnostic BI IMPRESSION: There are no significant changes from prior study. Recommend 6-month followup right breast mammography with spot magnification views. ASSESSMENT: BI-RADS 3: Probably Benign. RECOMMENDATION: Diagnostic mammography in 6 months. This patient's information was entered into a reminder system with a target due date for their next mammogram.
== END 2021-09-28 12:59 | disposition home or self-care (01) ==
LOC: HO.MAMMO 12:58
PROVIDERS: PCP Internal Medicine; Visit Provider Internal Medicine
DX: R92.1 Mammographic calcification found on diagnostic imaging of breast (principal)
CPT/HCPCS: 77062; 77066

== ENCOUNTER → 2021-09-28 13:49 | Outpatient (REF) | payer OTHER, SELFPAY ==
--- NOTE | 2021-09-28 13:52 | CA_ITS ---
Transthoracic Echocardiogram Patient (Last, First, Middle): Yasmin Fragoso, Gender: Female Date of : 1970 Age: 51 Procedure Date: 09/28/2021 Procedure Type: Transthoracic Echocardiogram Location: OP Height: 157.48 cm Weight: 79.38 kg BSA: 1.81 m2 Heart Rate: 63 bpm BP: 120 / 60 mmHg Medical Records Auditor: SB Referring MD: Cole Curry MD Symptoms: R55 - Syncope and collapse Study Quality: Adequate ECG Rhythm: Sinus Conclusions: - The left ventricular systolic function is normal. The calculated ejection fraction is 66% by biplane method. - No obvious valvular pathology seen on this study. Findings Left Ventricle Normal left ventricular cavity size. There is normal left ventricular wall thickness. The left ventricular systolic function is normal. The calculated ejection fraction is 66% by biplane method. There is no evidence of regional wall motion abnormalities. Diastolic function is normal for age. LV peak GLS -21.1%. Right Ventricle Normal right ventricular cavity size and systolic function. Atria Both atria are normal in size. Aortic Valve There is a normal trileaflet aortic valve. There is no aortic valve stenosis. There is no aortic valve regurgitation. Mitral Valve The mitral valve appears normal. There is trace mitral valve regurgitation. There is no mitral valve stenosis. Pulmonic Valve The pulmonic valve is likely normal. Tricuspid Valve Normal tricuspid valve structure. There is trace tricuspid valve regurgitation. The pulmonary artery systolic pressure is normal. Great Vessels The aortic annulus, sinuses of valsalva, and asc aorta are normal in size. Venous The inferior vena cava is normal in size and collapses greater than 50% with inspiration. Pericardium/Pleural There is no evidence of pericardial effusion. Prior Study Comparison No prior study available for comparison. Recommendations, Care & Conclusions No obvious valvular pathology seen on this study. Measurements 2D Linear Measurements IVSd: 0.82 0.6-0.9/0.6-1.0 cm LVIDd: 4.18 3.9-5.3/4.2-5.9 cm LVIDd Index: 2.31 2.4-3.2/2.2-3.1 cm/m2 LVIDs: 2.53 2.0-3.6 cm LVPWd: 0.74 0.7-1.1 cm LA Diam: 3.70 2.7-3.8/3.0-4.0 cm LAIDs Index: 2.04 1.5-2.3 cm/m2 LV Mass: 120.52 67-162/88-224 g LV Mass Index: 66.59 43-95/49-115 g/m2 LVOT Diam: 2.10 3.0+(-)1.3 cm 2D Systolic Function EF 4C: 64.70 >55% EF 2C: 65.40 >55% EF BiP: 66.10 >55% Mitral Valve MV Pk E: 0.67 MV PK A: 0.57 MV Decel Time: 231.00 E/A: 1.20 E'Lateral: 18.00 E'Medial: 6.20 E/E' Med: 10.80 E/E' Lat: 3.70 PHT: 68.00 MVA PHT: 3.24 Decel Jones: 2.90 Aortic Valve AoV Pk Chiki: 1.33 AoV Mn Chiki: 0.88 AoV VTI: 0.26 AoV Pk Grad: 7.00 Aov Mn Grad: 4.00 SAUNDRA Cont.VTI: 2.96 LVOT LVOT Pk Chiki: 1.27 LVOT Mn Chiki: 0.77 LVOT VTI: 0.23 LVOT Pk Grad: 6.00 LVOT Mn Grad: 3.00 LVOT Diam: 2.10 LVOT Area: 3.46 Diastolic Function MV Pk E: 0.67 MV Pk A: 0.57 E/A: 1.20 E'Medial: 6.20 E/E' Med: 10.80 E' Laterial: 18.00 E/E' Lat: 3.70 Right Ventricle TAPSE (mm): 20.80 TVS' Chiki: 12.70 Tricuspid Valve TR Pk Chiki: 2.09 TR Pk Grad: 17.00 RA Press: 3.00 RVSP: 20.00 Great Vessels Aorta Sinus of Valsalva: 2.90 2.0-3.5 cm Ao Asc: 3.10 2.1-3.4 cm Ao Arch: 2.60 Ao Desc: 1.50 Pulmonary Veins Pulm Vein S/D 1.50 Pulmonary Valve PV Pk Chiki: 0.84 Peak PV Grad: 3.00 Updated in Other Vendor System with Status of Final Cole Curry MD electronically signed on 09/29/2021 11:14:23 AM with status of Final
== END ==
LOC: HO.CARD 13:49
PROVIDERS: PCP Internal Medicine; Visit Provider Internal Medicine
DX: R55 Syncope and collapse (principal)
CPT/HCPCS: 93306; 93356

== ENCOUNTER 2021-12-27 10:27 | Outpatient (REF) | payer OTHER, SELFPAY | END 2021-12-27 10:28 | disposition home or self-care (01) | LOC: HO.LNP 10:27 | PROVIDERS: Visit Provider Obstetrics & Gynecology | DX: R10.2 Pelvic and perineal pain (principal) | CPT/HCPCS: 99212 ==

== ENCOUNTER 2021-12-27 16:27 | Outpatient (REF) | payer OTHER, SELFPAY ==
[2021-12-28 03:05] LABS: CT PCR NOT DETECTED (Not Detect.); NG PCR NOT DETECTED (Not Detect.)
== END 2021-12-27 16:28 | disposition home or self-care (01) ==
LOC: HO.LNP 16:27
PROVIDERS: Visit Provider Obstetrics & Gynecology
DX: Z11.3 Encounter for screening for infections with a predominantly sexual mode of transmission (principal); R10.2 Pelvic and perineal pain
CPT/HCPCS: 87491; 87591

== ENCOUNTER 2022-03-27 14:40 | Outpatient (REF) | payer OTHER, SELFPAY ==
--- NOTE | ~2022-03-27 | US_ITS ---
EXAMINATION: US PELVIS COMPLETE CLINICAL INFORMATION: Pelvic and perineal pain COMPARISON: Pelvic ultrasound 02/17/2019, CT abdomen pelvis 03/15/2021 TECHNIQUE: Transabdominal imaging was performed. FINDINGS: The uterus is of normal size measuring 9.2 x 5.3 x 5.1 cm. There are multiple small intramural myomas decreased in size and number with respect to prior. The largest is a 1.5 cm intramural myoma in the right body previously measuring 1.9 cm. A regular homogeneous endometrium is identified measuring 0.3 cm. Nabothian cysts in the cervix. Both ovaries are of normal size and echogenicity. The right measures 1.9 x 1.3 x 1.4 cm for a volume of 1.8 mL. The left measures 1.7 x 0.8 x 1.3 cm for a volume of 0.9 mL. The right ovary is remarkable for a 1.7 cm simple cyst for which no follow-up imaging is recommended. There is no pelvic free fluid. US/US pelvic and transvaginal IMPRESSION: Multiple small intramural myomas decreased in size and number with respect to prior measuring up to 1.5 cm. A 1.5 cm benign simple right ovarian cyst. No follow-up imaging recommended.,
== END 2022-03-27 14:41 | disposition home or self-care (01) ==
LOC: HO.US 14:40
PROVIDERS: Visit Provider Obstetrics & Gynecology
DX: R10.2 Pelvic and perineal pain (principal)
CPT/HCPCS: 76830; 76856

== ENCOUNTER 2022-03-28 14:57 | Outpatient (REF) | payer OTHER, SELFPAY ==
[2022-03-30 22:04] LABS: HPV mRNA E6/E7 rflx Not Detected (Not Detected)
== END 2022-03-28 14:58 | disposition home or self-care (01) ==
LOC: HO.LNP 14:57
PROVIDERS: Visit Provider Obstetrics & Gynecology
DX: Z01.419 Encounter for gynecological examination (general) (routine) without abnormal findings (principal); Z11.51 Encounter for screening for human papillomavirus (HPV)
CPT/HCPCS: 87624; 88142

== ENCOUNTER → 2022-05-02 13:56 | Outpatient (BNVA) | payer OTHER, SELFPAY | PROVIDERS: PCP Internal Medicine; Visit Provider Obstetrics & Gynecology | DX: D25.1 Intramural leiomyoma of uterus (principal) | CPT/HCPCS: 99212 ==

== ENCOUNTER 2022-06-05 11:57 | Outpatient (REF) | payer OTHER, SELFPAY ==
--- NOTE | ~2022-06-05 | XR_ITS ---
EXAMINATION: XR KNEE, RIGHT CLINICAL INFORMATION: Pain. COMPARISON: None TECHNIQUE: AP and lateral views of the right knee. FINDINGS: Bony alignment and mineralization are normal. The lateral, medial and patellofemoral joint space compartments are well-maintained. There is mild tricompartment peripheral osteophyte formation. No fracture, dislocation or significant joint effusion is seen. There is no foreign body. XR/XR knee RT 2V IMPRESSION: 1. No fracture, dislocation or joint effusion is seen. 2. There is very mild tricompartment peripheral osteophyte formation.
== END 2022-06-05 11:58 | disposition home or self-care (01) ==
LOC: HO.XRAY 11:57
PROVIDERS: PCP Internal Medicine; Visit Provider Internal Medicine
DX: M25.561 Pain in right knee (principal)
CPT/HCPCS: 73560

== ENCOUNTER → 2022-06-19 14:02 | Outpatient (BNVA) | payer OTHER, SELFPAY | PROVIDERS: PCP Internal Medicine; Referring Provider Internal Medicine; Visit Provider Nurse Practitioner Family | DX: Z12.11 Encounter for screening for malignant neoplasm of colon (principal) | CPT/HCPCS: 99202 ==

== ENCOUNTER 2022-10-01 10:51 | Outpatient (REF) | payer OTHER, SELFPAY ==
--- NOTE | ~2022-10-01 | US_ITS ---
EXAMINATION: US PELVIS COMPLETE TRANSVAGINAL PELVIC ULTRASOUND: CLINICAL INFORMATION: Benign neoplasm of soft tissue COMPARISON: 03/27/2022 TECHNIQUE: Transabdominal imaging initially performed. For more definitive evaluation of the endometrium and ovaries, transvaginal technique was employed. FINDINGS: Uterus is anteverted and anteflexed measuring 8.5 x 5.0 x 5.3cm. Multiple fibroids. Right sided intramural 2.0 x 1.7 x 1.6 cm fibroid previously measured 1.3 x 1.5 x 1.3 cm. Right-sided 1.2 x 1.9 x 1.2 cm fibroid previously measured 0.8 x 0.8 x 0.8 cm. Left-sided 1.1 x 1.1 x 1.6 cm fibroid previously measured 0.7 x 0.7 x 0.6 cm. Endometrium measures 0.2 cm. Right ovary measures 2.3 x 1.2 x 1.6 cm for a volume of 2.3 mL. Previous measurement was 1.9 x 1.3 x 1.0 cm. Right ovarian cyst seen on previous study is not identified on today's examination. The left ovary measures 2.0 x 1.1 x 1.9 cm for a volume of 2.2 mL. Previous measurement was 1.7 x 0.8 x 1.3 cm. There is no pelvic free fluid. US/US pelvic and transvaginal IMPRESSION: Fibroid uterus. Resolution previously demonstrated 1.7 cm right ovarian cyst.
== END 2022-10-01 10:52 | disposition home or self-care (01) ==
LOC: HO.US 10:51
PROVIDERS: PCP Internal Medicine; Visit Provider Obstetrics & Gynecology
DX: D21.9 Benign neoplasm of connective and other soft tissue, unspecified (principal)
CPT/HCPCS: 76830; 76856

== ENCOUNTER → 2022-10-15 10:58 | Outpatient (BNVA) | payer OTHER, SELFPAY | PROVIDERS: PCP Internal Medicine; Visit Provider Obstetrics & Gynecology | DX: D25.1 Intramural leiomyoma of uterus (principal) | CPT/HCPCS: 99212 ==

== ENCOUNTER 2022-12-20 13:43 | Outpatient (REF) | payer OTHER, SELFPAY ==
--- NOTE | ~2022-12-20 | MM_ITS ---
EXAMINATION: MM DIAGNOSTIC DIGITAL BREAST TOMOSYNTHESIS, BILATERAL CLINICAL INFORMATION: Six-month follow-up right breast calcifications to establish a two-year stability. Patient also due for bilateral screening. COMPARISON: Mammography: 09/28/2021, 03/28/2021, 09/01/2020, 08/21/2020, 03/05/2019, and dating back to 2017. TECHNIQUE: Digital breast tomosynthesis is performed in both the craniocaudal and mediolateral oblique views along with computer-aided detection (CAD). Synthesized 2D images are generated from the tomosynthesis. In addition, 2-D spot magnification views were performed of the right breast in the CC and ML projections. FINDINGS: The breasts are heterogeneously dense, which may obscure small masses (ACR BI-RADS breast composition Category c). The small focus of grouped punctate calcifications in the upper slightly outer right breast, mid to anterior one third, has remained stable and completely unchanged from prior exams in both morphology, and number. There are no branching, linear, or casting forms. This completes two-year stability, considering benignity. No further follow-up required. Otherwise, there are are no suspicious masses, other suspicious grouped calcifications, or areas of architectural distortion in either breast. The parenchymal pattern is stable from prior exams. A 1 view asymmetry in the inferior anterior right breast MLO view dissipates nicely on tomographic views consistent with superimposition artifact of normal tissue. MM/MM tomosynthesis diagnostic BI IMPRESSION: There are no findings suspicious for malignancy in either breast. Stable calcifications right breast, showing two-year stability. No further follow-up suggested. Recommend the patient resume routine annual screening. ASSESSMENT: BI-RADS BI-RADS 2 - Benign Findings RECOMMENDATION: 1 year F/U Results were provided to the patient at time of visit by the technologist. This patient's information was entered into a reminder system with a target due date for their next mammogram.
== END 2022-12-20 13:44 | disposition home or self-care (01) ==
LOC: HO.MAMMO 13:43
PROVIDERS: PCP Internal Medicine; Visit Provider Internal Medicine
DX: Z12.31 Encounter for screening mammogram for malignant neoplasm of breast (principal)
CPT/HCPCS: 77062; 77066

== ENCOUNTER → 2022-12-20 14:00 | Outpatient (BNV) | payer OTHER, SELFPAY | PROVIDERS: PCP Internal Medicine; Visit Provider Radiology Diagnostic Radiology | DX: R92.1 Mammographic calcification found on diagnostic imaging of breast (principal) | CPT/HCPCS: 77062; 77066 ==

== ENCOUNTER 2022-12-31 11:22 | Outpatient (AMB) | payer OTHER, SELFPAY ==
--- NOTE | 2022-12-31 11:39 | A.OFFVIS_ITS ---
Intake Vital Signs 12/31/22 11:42 Height 5 ft 2 in Weight 176 lb 5.917 oz BMI 32.3 BP 116/70 Intake Visit Reasons: vaginal bleeding Allergies No Known Allergies Allergy (Verified 10/15/22 11:05) HPI HPI Comments History of Present Illness Details Presenting complaining of vaginal bleeding over the last 5 days associated with passage of blood clots and pelvic cramping after 4 months of am enorrhea. Last co testing was in 04/11 Last mammogram was in 01/11 was BI-RADS 2 Last ultrasound done in 10/11 showed the following: Uterus is anteverted and anteflexed measuring 8.5 x 5.0 x 5.3cm. Multiple fibroids. Right sided intramural 2.0 x 1.7 x 1.6 cm fibroid previously measured 1.3 x 1.5 x 1.3 cm. Right-sided 1.2 x 1.9 x 1.2 cm fibroid previously measured 0.8 x 0.8 x 0.8 cm. Left-sided 1.1 x 1.1 x 1.6 cm fibroid previously measured 0.7 x 0.7 x 0.6 cm. Endometrium measures 0.2 cm. Right ovary measures 2.3 x 1.2 x 1.6 cm for a volume of 2.3 mL. Previous measurement was 1.9 x 1.3 x 1.0 cm. Right ovarian cyst seen on previous study is not identified on today's examination. The left ovary measures 2.0 x 1.1 x 1.9 cm for a volume of 2.2 mL. Previous measurement was 1.7 x 0.8 x 1.3 cm. There is no pelvic free fluid. The patient scheduled for repeat follow-up ultrasound in the coming few [facility] Medical History Physical exam Right knee pain Dizziness Pure hypercholesterolemia Knee pain Vitamin D deficiency Well woman exam Surgical History Hx of appendectomy Tubal ligation status History of cholecystectomy Family History Maternal Grandmother Diabetes Paternal Grandmother Hypertension Stroke Father Pernicious anemia Mother No problems noted. Maternal Aunt Breast cancer Sister No problems noted. Son No problems noted. Son No problems noted. Daughter No problems noted. Daughter No problems noted. Social History Housing: Apartment Alcohol intake: never Patient Tobacco Use Status: Never used Tobacco e-Cigarette/Vaping Use: Never Used Second Hand Smoke Exposure: No service: No Current occupational status: employed Current occupational exposures/hazards: No Sexual orientation: Straight/Heterosexual Gender identity: Female Cognitive needs: No Hearing needs: No Vision needs: No Female Reproductive History Menstrual Age of Menarche: 10 Review of Systems Const All systems reviewed & are unremarkable except as noted in HPI and below Physical Exam Vital Signs: Last Vital Signs BP 116/70 12/31/22 11:42 BMI result Body Mass Index 32.3 General: Yes no CVA tenderness External Female Exam: normal external appearance and normal appearance of the urethra Speculum Exam - Vagina: normal appearance of the vagina, normal palpation, no lesions and no masses Speculum Exam - Cervix: normal appearance of the cervix, normal palpation, no lesions, no masses and nontender Bimanual exam- vagina & uterus: normal bimanual exam, normal palpation, uterine size normal, normal palpation, uterine shape normal, No Cervical tenderness present and non-tender Bimanual Exam- Adnexa, other: normal adnexae Back/Spine/Pelvis Back: no CVA tenderness Office Procedures Endometrial Biopsy Details: The patient was counseled regarding the indication and benefits of endometrial sampling to rule out endometrial pathology including not limited to endometrial hyperplasia or endometrial cancer and others; The alternatives (Either do nothing vs. hysteroscopy D&C) & the risks were discussed with the patient including but not limited: pain, uterine perforation, bleeding, infection, possible injury to bladder, bowel, ureter, possible need for blood transfusion with all its possible risks. The patient verbalized understanding all questions answered and signed consent. UPT was done in the office and was negative The patient was placed into the dorsal lithotomy position; a speculum was inserted in the vagina. Using aseptic technique for the procedure, the cervix was cleansed with Betadine. The anterior lip of the cervix was grasped with a single tooth tenaculum. The uterus was sounded to 7 cm with a 4 mm Pipelle was used. Tissues samples were obtained and placed in formalin, in a patient labeled container and sent to the pathology department. At the end of the procedure, there was minimal bleeding noted The patient tolerated the procedure well and was discharged in good condition with the following instructions: Nothing in the vagina until the bleeding stops. No sex until the bleeding stops, to call if any of the following occurs: fever (>100.4), flu-like symptoms, abdominal pain, heavy bleeding, four smelling vaginal discharge. The patient was instructed to schedule a Follow up appointment in 2 weeks to discuss pathology results of the biopsy and treatment options. This note was generated with a voice recognition program. Some errors may have been overlooked during the review of this note. Sometimes these errors may affect the content or meaning of a given sentence. [id number] Biopsy Assessment & Plan Assessment & Plan (1) Abnormal uterine bleeding (AUB): Code(s): N93.9 - Abnormal uterine and vaginal bleeding, unspecified Plan: Co testing not indicated, GC and chlamydia taken CBC, TSH, prolactin, FSH/LH, HCG, and pelvic ultrasound previously ordered and scheduled in January, will move the appointment to an earlier date. Discussed with the patient the different causes of abnormal bleeding including thyroid disorders, uterine and ovarian pathology, endometrial hyperplasia, carcinoma and other potential causes. Discussed with the patient the work up including CBC (to r/o anemia), TSH, prolactin, FSH/LH, pelvic Ultrasound, endometrial biopsy to r/o endometrial pathology, EMB done, see procedure note. All questions answered and the patient verbalized understanding. Instructed the patient to schedule a follow-up appointment in 2 weeks. Orders: Orders TSH reflex Free T4 Today N93.9 - Abnormal uterine and vaginal bleeding, unspecified HCG Quantitative Today N93.9 - Abnormal uterine and vaginal bleeding, unspecified Lutenizing Hormone Today N93.9 - Abnormal uterine and vaginal bleeding, unspecified Follicle Stimulating Hormone Today N93.9 - Abnormal uterine and vaginal bleeding, unspecified AMB Endometrial Biopsy Today N93.9 - Abnormal uterine and vaginal bleeding, unspecified Complete Blood Count no Diff Today N93.9 - Abnormal uterine and vaginal ble eding, unspecified Prolactin Today N93.9 - Abnormal uterine and vaginal bleeding, unspecified Coding Level of Care Code Est Pt Level 3 (65229) Procedure Only Diagnoses Abnormal uterine bleeding (AUB) N93.9 CPT Codes Endometrial Biopsy - CPT: 85573-[id number] Biopsy ([id number])
[2022-12-31 11:42] VITALS: BP 116/70; BMI 32.3
== END 2022-12-31 11:53 | disposition home or self-care (01) ==
PROVIDERS: PCP Internal Medicine; Visit Provider Obstetrics & Gynecology
DX: N93.9 Abnormal uterine and vaginal bleeding, unspecified (principal); Z32.02 Encounter for pregnancy test, result negative
CPT/HCPCS: 58100; 99213

== ENCOUNTER 2022-12-31 11:22 | Outpatient (REF) | payer OTHER, SELFPAY ==
[2022-12-31 12:44] LABS: Hematocrit 39.5 % (37.0-47.0); Mean Corpuscular HGB Conc 32.9 g/dl (31.0-35.0); Mean Corpuscular Hemoglobin 28.8 pg (27.0-33.0); Mean Corpuscular Volume 87.6 fL (80.0-98.0); Mean Platelet Volume 10.7 fL (9.4-12.3); Platelet Count 285 X10*3/uL (160-400); Red Blood Count 4.51 X10*6/uL (4.20-5.50); Red Cell Distribution Width 15.2 % (11.0-16.0); White Blood Count 6.5 X10*3/uL (4.8-10.8)
[2022-12-31 13:50] LABS: HCG Quantitative < 2 mIU/mL
[2023-01-01 07:14] LABS: CT PCR NOT DETECTED (Not Detect.); NG PCR NOT DETECTED (Not Detect.)
[2023-01-02 10:08] LABS: Follicle Stimulating Hormone 26.1 mIU/mL; Lutenizing Hormone 14.6 mIU/mL; Prolactin 5.7 ng/mL
== END 2022-12-31 11:23 | disposition home or self-care (01) ==
LOC: HO.LAB 11:22
PROVIDERS: PCP Internal Medicine; Visit Provider Obstetrics & Gynecology
DX: N93.9 Abnormal uterine and vaginal bleeding, unspecified (principal)
CPT/HCPCS: 0353U; 36415; 58100; 81025; 83001; 83002; 84146; 84443; 84702; 85027; 99212

== ENCOUNTER 2022-12-31 12:17 | Outpatient (REF) | payer OTHER, SELFPAY | END 2022-12-31 12:18 | disposition home or self-care (01) | LOC: HO.LNP 12:17 | PROVIDERS: Visit Provider Obstetrics & Gynecology | DX: N93.9 Abnormal uterine and vaginal bleeding, unspecified (principal) | CPT/HCPCS: 88305 ==

== ENCOUNTER 2023-01-10 10:37 | Outpatient (REF) | payer OTHER, SELFPAY ==
--- NOTE | ~2023-01-10 | US_ITS ---
EXAMINATION: US PELVIS CLINICAL INFORMATION: Routine fibroid COMPARISON: 10/02/2019 TECHNIQUE: Ultrasound of the pelvis is performed using both transabdominal and transvaginal transducers along with Doppler. Transvaginal imaging is performed due to inadequate visualization transabdominally. FINDINGS: Uterus: The uterus is anteverted and measures 8.0 x 5.5 x 5.7. Endometrium is not clearly seen. There are 2 uterine fibroids in the fundus measured 1.8 x 1.4 x 1.5 cm and 0.9 x 0.8 x 1.1 cm, both slightly diminished in size . Adnexa: Both ovaries are visualized. There is normal color flow to the adnexa. There is no ovarian torsion. There is no pelvic ascites or fluid collection. Right ovary measures 2.2 x 1.9 x 1.5 cm. . There is a volume measured 3.3 mL Left ovary measures 4.6 x 4.5 x 3.3 cm. The volume measured 36 mL. There is 3.9 x 3. X 3.5 cm simple cyst. US/US pelvic and transvaginal IMPRESSION: Uterine fibroids and heterogeneous uterus. Simple cyst in left ovary. Nonvisualization of endometrial
== END 2023-01-10 10:38 | disposition home or self-care (01) ==
LOC: HO.US 10:37
PROVIDERS: PCP Internal Medicine; Visit Provider Obstetrics & Gynecology
DX: D21.9 Benign neoplasm of connective and other soft tissue, unspecified (principal)
CPT/HCPCS: 76830; 76856

== ENCOUNTER 2023-01-29 08:59 | Outpatient (AMB) | payer OTHER, SELFPAY ==
--- NOTE | 2023-01-29 09:04 | MHC.OFFVIS ---
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 No complaints no abnormal uterine bleeding, pelvic pressure or pain. Pelvic ultrasound done recently showed the following: Uterus: The uterus is anteverted and measures 8.0 x 5.5 x 5.7. Endometrium is not clearly seen. There are 2 uterine fibroids in the fundus measured 1.8 x 1.4 x 1.5 cm and 0.9 x 0.8 x 1.1 cm, both slightly diminished in size . Adnexa: Both ovaries are visualized. There is normal color flow to the adnexa. There is no ovarian torsion. There is no pelvic ascites or fluid collection. Right ovary measures 2.2 x 1.9 x 1.5 cm. . There is a volume measured 3.3 mL Left ovary measures 4.6 x 4.5 x 3.3 cm. The volume measured 36 mL. There is 3.9 x 3. X 3.5 cm simple cyst. [facility] Medical History Physical exam Right knee pain Dizziness Pure hypercholesterolemia Knee pain Vitamin D deficiency Well woman exam Surgical History Hx of appendectomy Tubal ligation status History of cholecystectomy Family History Maternal Grandmother Diabetes Paternal Grandmother Hypertension Stroke Father Pernicious anemia Mother No problems noted. Maternal Aunt Breast cancer Sister No problems noted. Son No problems noted. Son No problems noted. Daughter No problems noted. Daughter No problems noted. Social History Housing: Apartment Alcohol intake: never Patient Tobacco Use Status: Never used Tobacco e-Cigarette/Vaping Use: Never Used Second Hand Smoke Exposure: No service: No Current occupational status: employed Current occupational exposures/hazards: No Sexual orientation: Straight/Heterosexual Gender identity: Female Cognitive needs: No Hearing needs: No Vision needs: No Female Reproductive History Menstrual Age of Menarche: 10 Review of Systems Const All systems reviewed & are unremarkable except as noted in HPI and below Reports as per HPI and Reports no additional complaints GI Reports no additional complaints Reports no additional complaints Physical Exam Vital Signs: Last Vital Signs BP 108/66 01/29/23 09:06 BMI result Body Mass Index 32.3 Assessment & Plan Assessment & Plan (1) Myoma: Code(s): D21.9 - Benign neoplasm of connective and other soft tissue, unspecified Plan: Discussed with the patient the findings on pelvic ultrasound & the risk of myosarcoma; discussed with the patient the options of treatment including expectant management versus hysterectomy; the pros and cons, risks benefits of each approach were discussed with the patient including the fact that in cases of myosarcoma, surgical treatment can lead to early diagnosis and positively affects the prognosis; after further discussion, the patient decided to proceed with expectant management. Will repeat pelvic ultrasound periodically. Instructions given to patient to call in case any of the following occurs: pressure symptoms, abnormal uterine bleeding, pelvic pain; and to schedule a future office follow-up appointment for reassessment and to order a repeat ultrasound . All questions answered, the patient verbalized understanding and agreed with the plan . Coding Level of Care Code Est Pt Level 3 (08388) Diagnoses Myoma D21.9
[2023-01-29 09:06] VITALS: BP 108/66; BMI 32.3
== END 2023-01-29 09:17 | disposition home or self-care (01) ==
PROVIDERS: PCP Internal Medicine; Visit Provider Obstetrics & Gynecology
DX: D21.9 Benign neoplasm of connective and other soft tissue, unspecified (principal)
CPT/HCPCS: 99213

== ENCOUNTER → 2023-01-29 08:59 | Outpatient (BNVA) | payer OTHER, SELFPAY | PROVIDERS: PCP Internal Medicine; Visit Provider Obstetrics & Gynecology | DX: D21.9 Benign neoplasm of connective and other soft tissue, unspecified (principal) | CPT/HCPCS: 99212 ==

== ENCOUNTER 2023-04-27 21:08 | Emergency (ER) | payer OTHER, SELFPAY ==
[2023-04-27 21:13] VITALS: BP 140/77; PULSE 76; RESP 18; TEMP 36.8; O2SAT 98; BMI 33.4
--- NOTE | 2023-04-27 21:47 | ED.GENADULT ---
HPI - General Adult General Chief complaint: Eye Problems Stated complaint: eyes swollen and watering Time Seen by Provider: 04/27/23 21:32 Source: patient and family () Mode of arrival: ambulatory Limitations: no limitations History of Present Illness HPI narrative: Patient is a 52-year-old female presenting to the emergency department with complaint of bilateral eye redness, irritation, itching and drainage since yesterday morning. States that initially yesterday morning symptoms began in right eye, then today spread to left eye. Neighbor gave patient OTC eye drops which did not improve symptoms at all. She denies any changes in vision. Complains of ongoing thick yellow discharge. Reports that she wears contact lenses sporadically, last wore on 04/18. Denies any concern for foreign bodies. Denies fevers, nasal congestion, cough, sore throat, ear pain. complaint: eye redness Onset (ago): day(s) Location: eyes Radiation: non-radiation Severity: severe Quality: burning Pain Consistency: constant Relieving factors: none Exacerbating factors: none Associated symptoms: denies other symptoms Treatments prior to arrival: other (OTC eyedrops) Related Data Previous Rx's Medication Instructions Recorded bisacodyl 5 mg tablet,delayed 10 mg (2 x 5 mg) PO ONCE 1 day #2 06/19/22 release (Dulcolax (bisacodyl)) tabs polyethylene glycol 3350 17 238 g PO ONCE #238 grams 06/19/22 gram/dose oral powder (Miralax) ciprofloxacin HCl 0.3 % eye drops See Rx Instructions ophthalmic 04/27/23 (eye) .COMPLEX #10 mL Allergies Allergy/AdvReac Type Severity Reaction Status Date / Time No Known Allergies Allergy Verified 01/29/23 09:06 Review of Systems Review of Systems: As per MDM Yes all other systems are reviewed and are negative Constitutional: Constitutional: Reports as per HPI PMFSH Past Medical History Onset Date is defined in the Problem List Problems that require an onset date and time if occurred within 24 hrs of arrival to the ED Aortic Dissection and Rupture; Neurologic impairment; Cardiopulmonary Arrest; Endotracheal Intubation; Insertion or Replacement of Mechanical Circulatory Assist Device Medical History Physical exam Right knee pain Dizziness Pure hypercholesterolemia Knee pain Vitamin D deficiency Well woman exam Surgical History Hx of appendectomy Tubal ligation status History of cholecystectomy Family History Family History Maternal Grandmother Diabetes Paternal Grandmother Hypertension Stroke Father Pernicious anemia Mother No problems noted. Maternal Aunt Breast cancer Sister No problems noted. Son No problems noted. Son No problems noted. Daughter No problems noted. Daughter No problems noted. Social History Social History Housing: Apartment Alcohol intake: never Patient Tobacco Use Status: Never used Tobacco e-Cigarette/Vaping Use: Never Used Second Hand Smoke Exposure: No Advance Directives: No Advance Directives Information Provided: No service: No Current occupational status: employed Current occupational exposures/hazards: No Sexual orientation: Straight/Heterosexual Gender identity: Female Cognitive needs: No Hearing needs: No Vision needs: No Physical Exam ED Vital Signs: Vital Signs - 24 hr 04/27/23 21:13 Temperature 98.2 F Pulse Rate 76 Respiratory Rate 18 Blood Pressure 140/77 H Pulse Oximetry 98 Oxygen Delivery Method Room Air BMI result Body Mass Index 33.4 Vital signs have been reviewed and appear to be correct. Blood pressure mildly elevated. Heart rate normal. Respiratory rate normal. Temperature normal. Oxygen saturation normal. Const General: cooperative, healthy appearing and no acute distress Orientation/consciousness: oriented to person, oriented to place, oriented to time and patient oriented x3 Limitations: no limitations HENRI Head: Yes normocephalic and Yes atraumatic Ears: external ears normal General nose exam: Normal external nose present Face and sinus: Yes face symmetric Mouth: oropharynx normal and moist mucous membranes Throat: Yes uvula midline Eyes Periorbital: periorbital findings normal Eyelids: Yes other (mild erythema and swelling bilateral upper eyelids) Conjunctivae: conjunctival abnormal bilateral conjunctival injection diffuse and discharge purulent Pupils: Equal, round and reactive pupils present EOM: EOMs intact bilaterally (no pain with eye movement) Neck Neck: Yes normal visual inspection and Yes supple Resp Effort & Inspection: normal respiratory effort and able to speak in complete sentences Auscultation: clear to auscultation bilaterally Cardio Rate: regular rate Rhythm: regular rhythm Heart sounds: S1 normal heart sound present and S2 normal heart sound present GI Palpation (GI): Soft to palpation and nontender Auscultation: normoactive bowel sounds General: Yes no CVA tenderness Back/Spine/Pelvis Back: no CVA tenderness Skin General skin exam: elasticity normal and turgor normal Neuro General: oriented to person, oriented to place, oriented to time, patient oriented x3, moves all extremities, no focal motor deficits and CN's II-XI intact bilaterally Cranial nerves: Yes Equal, round and reactive pupils present Cognition (Neuro): normal cognition Extrem General: Yes full ROM, Yes no pedal edema and Yes no calf tenderness Psych Mental Status: mental status grossly normal Affect: normal affect Thought process: Normal thought process present Medical Decision Making Medical Decision Making [facility] Narrative: Patient is a 52-year-old female presenting to the emergency department with complaint of bilateral eye redness, irritation, itching and drainage since yesterday morning. On exam patient is awake, A+Ox3, VS WNL, afebrile, normal neurological exam without focal deficits, physical exam findings as above. Given reported symptoms and physical exam findings, initial differential includes viral versus bacterial conjunctivitis, less likely corneal abrasions. Do not suspect herpes zoster ophthalmicus, keratitis, scleritis, corneal ulcer. Given that patient occassionally wears contact lenses, will treat with Cipro drops. Instructed patient to follow up with PCP and health education assistant. Return precautions discussed with patient and . Patient and verbalized understanding of and agreement with plan. Differential Diagnosis Differential Diagnoses: The differential diagnosis associated with the presentation includes As per [facility] Independent Historian Clinical information obtained from an independent historian. History obtained from or confirmed by: Spouse External Record Review External record reviewed: Inpatient record, Office record and Outpatient record Prescription Management I considered prescription management with: Antibiotic Discharge Plan Discharge Clinical Impression: Conjunctivitis Qualifiers: Conjunctivitis type: acute Acute conjunctivitis type: unspecified Laterality: bilateral Qualified Code(s): H10.33 - Unspecified acute conjunctivitis, bilateral Patient Disposition: Home, Self-Care Instructions: Conjunctivitis (ED) Additional Instructions: You were evaluated in the emergency department today for pain, itching, and redness to your eyes. You are being treated for conjunctivitis with antibiotic eyedrops. Please use these as prescribed. DO NOT WEAR CONTACT LENSES UNTIL TREATMENT IS COMPLETE AND ALL SYMPTOMS HAVE RESOLVED. Follow up with your primary care provider or health education assistant this week. Return to the emergency department if you develop worsening pain, fever, vision changes, increasing redness or swelling around your eyes, or any other concerning symptoms. Prescriptions: New ciprofloxacin HCl 0.3 % drops See Rx Instructions .ROUTE .COMPLEX Qty: 10 0RF Rx Instructions: put 1-2 drps in affected eye(s) every 2hr up to 8 times/day x2days; then 4 times/day x5days No Action bisacodyl [Dulcolax (bisacodyl)] 5 mg tablet,delayed release (DR/EC) 10 mg PO ONCE 1 Days Qty: 2 0RF Rx Instructions: take 2 tabs at noon the day before your colonoscopy polyethylene glycol 3350 [Miralax] 17 gram/dose powder 238 g PO ONCE Qty: 238 0RF Rx Instructions: As directed by gastroenterology department at [facility] Referrals: Jacky Cadet [Physician] -
== END 2023-04-27 22:22 | disposition home or self-care (01) ==
PROVIDERS: Emergency Provider Student in an Organized Health Care Education/Training Program; PCP Internal Medicine
DX: H10.33 Unspecified acute conjunctivitis, bilateral (principal)
CPT/HCPCS: 99282; 99283

== ENCOUNTER 2023-07-22 09:19 | Emergency (ER) | payer OTHER, SELFPAY ==
--- NOTE | ~2023-07-22 | CT_ITS ---
EXAMINATION: CT HEAD WITHOUT CONTRAST CLINICAL INFORMATION: Right-sided headache COMPARISON: None available. TECHNIQUE: Contiguous axial imaging was performed from the skull base to vertex without intravenous administration of contrast. This CT examination was performed using dose optimization techniques as appropriate, variously including the following: *Automated exposure control *Adjustment of mA and/or kV according to patient size (this includes techniques or standardized protocols for targeted exams where dose is matched to indication/reason for exam; i.e. extremities or head) *Use of iterative reconstruction technique DLP: 652 mGy-cm FINDINGS: There is no evidence of acute intracranial hemorrhage or territorial infarction. No abnormal mass effect or midline shift is seen. Child to white matter differentiation is well preserved. No extra-axial fluid collections are identified. The ventricles are normal in size. There is no abnormal attenuation within the brain parenchyma. The osseous structures and soft tissues are normal. Mucoperiosteal thickening with near opacification of the left maxillary and ethmoid sinuses. The mastoid air cells and visualized portions of the paranasal sinuses are well aerated. CT/CT head/brain wo IV con IMPRESSION: 1. No acute intracranial pathology. 2. Mucoperiosteal thickening with near opacification of the left maxillary and ethmoid sinuses.
[2023-07-22 09:41] VITALS: BP 126/82; PULSE 70; RESP 16; TEMP 37.1; O2SAT 100; BMI 32.4
--- NOTE | 2023-07-22 10:37 | ED_ITS ---
HPI - General Adult General Chief complaint: Headache Stated complaint: R Side Head Pain No Injury Time Seen by Provider: 07/22/23 10:13 History of Present Illness HPI narrative: The patient is a 53-year-old woman who says that 1 week ago, last Friday, she was at a gym. She was doing some exercises. She was using a biceps machine. She says she was not straining very hard using the machine when she started to have a discomfort behind her right ear that she says was mild at and was like a pricking sensation to her head just behind the right ear. The discomfort persisted for the next several days and got much worse 3 days ago on Friday. It has been getting even worse since Friday and last night she could not sleep at all because of the discomfort. No definite fever. No sore throat. No numbness or tingling in her hands. No loss of function of her extremities. No difficulty speaking. Related Data Previous Rx's Medication Instructions Recorded bisacodyl 5 mg tablet,delayed 10 mg (2 x 5 mg) PO ONCE 1 day #2 06/19/22 release (Dulcolax (bisacodyl)) tabs polyethylene glycol 3350 17 238 g PO ONCE #238 grams 06/19/22 gram/dose oral powder (Miralax) ciprofloxacin HCl 0.3 % eye drops See Rx Instructions ophthalmic 04/27/23 (eye) .COMPLEX #10 mL ibuprofen 600 mg tablet 600 mg PO Q6H PRN pain #14 tabs 07/22/23 Allergies Allergy/AdvReac Type Severity Reaction Status Date / Time No Known Allergies Allergy Verified 01/29/23 09:06 Review of Systems 2 Review of Systems: Yes all other systems are reviewed and are negative [facility] Past Medical History Medical History Physical exam Right knee pain Dizziness Pure hypercholesterolemia Knee pain Vitamin D deficiency Well woman exam Surgical History Hx of appendectomy Tubal ligation status History of cholecystectomy Family History Family History Maternal Grandmother Diabetes Paternal Grandmother Hypertension Stroke Father Pernicious anemia Mother No problems noted. Maternal Aunt Breast cancer Sister No problems noted. Son No problems noted. Son No problems noted. Daughter No problems noted. Daughter No problems noted. Social History Social History Housing: Apartment Alcohol intake: never Patient Tobacco Use Status: Never used Tobacco Smoked in Last 30 Days: No e-Cigarette/Vaping Use: Never Used Second Hand Smoke Exposure: No Advance Directives: No Advance Directives Information Provided: No service: No Current occupational status: employed Current occupational exposures/hazards: No Sexual orientation: Straight/Heterosexual Gender identity: Female Cognitive needs: No Hearing needs: No Vision needs: No Physical Exam ED Vital Signs: Vital Signs - 24 hr 07/22/23 09:41 Temperature 98.7 F Pulse Rate 70 Respiratory Rate 16 Blood Pressure 126/82 Pulse Oximetry 100 Oxygen Delivery Method Room Air BMI result Body Mass Index 32.4 Const Other: The patient is awake and alert. She is holding her right hand behind her right ear in the area of her discomfort. She looks quite uncomfortable. Her mental status is clear however she is not toxic. HENMT Other: Face is symmetrical. Tympanic membranes are normal bilaterally. Ear canals are clear bilaterally. She does not have much in the way of tenderness behind the right ear in the area of her discomfort. No swelling or erythema. Pharynx is unremarkable. Mucous membranes are moist. No intraoral swelling or erythema. Eyes General: appearance normal, both eyes and all related structures Alignment and Position: alignment normal Periorbital: periorbital findings normal Eyelids: Yes eyelids normal Conjunctivae: conjunctivae normal Sclerae: sclerae normal Pupils: Equal, round and reactive pupils present EOM: EOMs intact bilaterally Neck Other: No definite cervical adenopathy. Possibly some very mild tenderness in the right paraspinous muscles posteriorly. No nuchal rigidity. She is able to touch her chin to her chest. Resp Effort & Inspection: normal respiratory effort Auscultation: clear to auscultation bilaterally Cardio Rate: regular rate Rhythm: regular rhythm Heart sounds: S1 normal heart sound present and S2 normal heart sound present Skin Other: Skin is dry and unremarkable Neuro Other: The patient looks uncomfortable but has a normal mental status. She is alert and oriented and appropriate. Cranial nerves 2-12 are intact. Normal strength and sensation in her extremities. Normal gait. No pronator drift. She seems grossly neurologically intact with a supple neck. Cranial nerves: Yes Equal, round and reactive pupils present Extrem Other: No peripheral edema Medications Administered Discontinued Medications Generic Name Dose Route Start Last Admin Trade Name [place] PRN Reason Stop Dose Admin Ketorolac Tromethamine 30 mg 07/22/23 10:39 07/22/23 11:09 Ketorolac Tromethamine 30 Mg/Ml Vial IM 07/22/23 10:40 30 mg ONCE ONE Administration Medical Decision Making Medical Decision Making [facility] Narrative: The patient is a 53-year-old female who presents for evaluation of pain on the right side of her head behind her ear or possibly at the very top of her neck near the mastoid process. She does not really describe infectious symptoms at all. I do not think this is mastoiditis. Her right ear canal and right eardrum looks entirely normal. Her mastoid is not particularly tender. In fact it is difficult to reproduce the patient's tenderness except possibly there is some slight tenderness to the muscle just below the mastoid process. The patient does not have a stiff neck. The patient's description of the onset of the symptoms is not highly suggestive of a subarachnoid hemorrhage. I think this would also be an unusual history for meningitis. The patient had testing that included labs and a CT scan of the brain. All of the patient's testing was very unremarkable. She was given a dose of IM ketorolac with significant improvement in her pain. Think she may be discharged to use ibuprofen for pain and should follow up with her regular doctor. Lab Data 07/22/23 11:04 07/22/23 11:04 Labs: Lab Results 07/22/23 07/22/23 Range/Units 11:04 11:47 WBC 5.4 (4.8-10.8) X10*3/uL RBC 4.55 (4.20-5.50) X10*6/uL Hgb 13.3 (12.0-16.0) g/dl Hct 39.7 (37.0-47.0) % MCV 87.3 (80.0-98.0) fL MCH 29.2 (27.0-33.0) pg MCHC 33.5 (31.0-35.0) g/dl RDW 14.6 (11.0-16.0) % Plt Count 292 (160-400) X10*3/uL MPV 10.4 (9.4-12.3) fL Immature Gran % (Auto) 0.2 (0.0-0.4) % Neut % (Auto) 46.3 (45-73) % Lymph % (Auto) 43.7 H (20-40) % [place] % (Auto) 6.8 (2-11) % Eos % (Auto) 2.6 (0-4) % Baso % (Auto) 0.4 (0-2) % Lymph # (Auto) 2.4 (1.2-4.9) X10*3/uL [place] # (Auto) 0.4 (0.1-1.2) X10*3/uL Eos # (Auto) 0.1 (0.0-0.4) X10*3/uL Baso # (Auto) 0.0 (0.0-0.2) X10*3/uL Abs Immat Gran (auto) 0.01 (0.00-0.03) X10*3/uL Absolute Neuts (auto) 2.5 (2.0-8.3) x10*3/uL Absolute Nucleated RBC 0.000 (0.0-0.012) X10*3/uL Nucleated RBC % (auto) 0.0 (0.0-0.2) /100WBC ESR 10 (0-20) MM/HR Sodium 141 (135-145) mmol/L Potassium 4.3 (3.3-5.1) mmol/L Chloride 107 (96-108) mmol/L Carbon Dioxide 27 (22-29) mmol/L Anion Gap 11 L (12-20) BUN 12 (9-16) mg/dL Creatinine 0.67 (0.5-1.4) mg/dL Estim Creat Clear Calc 94.2 Estimated GFR > 60 Random Glucose 96 (60-115) mg/dL Calcium 9.3 (8.4-10.2) mg/dL Total Bilirubin 0.4 (0.0-1.0) mg/dL Direct Bilirubin 0.1 (0.0-0.5) mg/dL AST 14 (5-31) U/L ALT 13 (0-31) U/L Alkaline Phosphatase 57 (39-117) U/L Troponin I High Sens < 2.7 (<3.5-17.0) ng/L C-Reactive Protein 0.19 (< or = 0.50) mg/dL Total Protein 7.2 (6.5-8.0) g/dL Albumin 4.2 (3.5-5.0) g/dL Beta HCG, Quant < 2 mIU/mL Influenza Type A (PCR) NEGATIVE (Negative) Influenza Type B (PCR) NEGATIVE (Negative) RSV RNA Qual (PCR) NEGATIVE (Negative) SARS-CoV-2 RNA (RT-PCR) NEGATIVE (Negative) Discharge Plan Discharge Clinical Impression: Right-sided headache, Neck pain on right side Patient Disposition: Home, Self-Care Additional Instructions: Your testing in the emergency room today is very reassuring. There does not seem to be any dangerous process at work. Please use ibuprofen every 6 hours as needed for pain. You may also take acetaminophen (Tylenol). You may take 2 extra-strength acetaminophen up to 3 times a day as needed. Please follow up soon with your regular doctor. Return to the emergency room if you feel significantly worse. Prescriptions: New ibuprofen 600 mg tablet 600 mg PO Q6H PRN (Reason: pain) Qty: 14 0RF No Action ciprofloxacin HCl 0.3 % drops See Rx Instructions .ROUTE .COMPLEX Qty: 10 0RF Rx Instructions: put 1-2 drps in affected eye(s) every 2hr up to 8 times/day x2days; then 4 times/day x5days bisacodyl [Dulcolax (bisacodyl)] 5 mg tablet,delayed release (DR/EC) 10 mg PO ONCE 1 Days Qty: 2 0RF Rx Instructions: take 2 tabs at noon the day before your colonoscopy polyethylene glycol 3350 [Miralax] 17 gram/dose powder 238 g PO ONCE Qty: 238 0RF Rx Instructions: As directed by gastroenterology department at [facility] Referrals: Brenna Rodriguez MD [Primary Care Provider] - (Right-sided head and neck pain)
--- NOTE | 2023-07-22 10:38 | ECG_ITS ---
Test Reason : HEADACHE Blood Pressure : / mmHG Vent. Rate : 066 BPM Atrial Rate : 066 BPM P-R Int : 174 ms QRS Dur : 078 ms QT Int : 414 ms P-R-T Axes : 015 047 012 degrees QTc Int : 434 ms Normal sinus rhythm Normal ECG When compared with ECG of 15-MAR-2021 17:13, No significant change was found Referred By: Geovanni Tanner Electronically Signed By:MIGUEL GALEANA MD
[2023-07-22 11:09] LABS: Basophils Percent Auto 0.4 % (0-2); Eosinophils Absolute Auto 0.1 X10*3/uL (0.0-0.4); Eosinophils Percent Auto 2.6 % (0-4); Hematocrit 39.7 % (37.0-47.0); Hemoglobin 13.3 g/dl (12.0-16.0); Imm Gran Abs Auto 0.01 X10*3/uL (0.00-0.03); Imm Gran Pct Auto 0.2 % (0.0-0.4); Lymphocytes Absolute Auto 2.4 X10*3/uL (1.2-4.9); Lymphocytes Percent Auto 43.7 % (20-40); MANUAL DIFF FLAG NO; Mean Corpuscular HGB Conc 33.5 g/dl (31.0-35.0); Mean Corpuscular Hemoglobin 29.2 pg (27.0-33.0); Mean Corpuscular Volume 87.3 fL (80.0-98.0); Mean Platelet Volume 10.4 fL (9.4-12.3); Monocytes Absolute Auto 0.4 X10*3/uL (0.1-1.2); Monocytes Percent Auto 6.8 % (2-11); Neutrophils Absolute Auto 2.5 x10*3/uL (2.0-8.3); Neutrophils Percent Auto 46.3 % (45-73); Platelet Count 292 X10*3/uL (160-400); Red Blood Count 4.55 X10*6/uL (4.20-5.50); Red Cell Distribution Width 14.6 % (11.0-16.0); White Blood Count 5.4 X10*3/uL (4.8-10.8)
[2023-07-22] MEDS: Ketorolac Tromethamine 30 MG/ML VIAL IM (11:09)
[2023-07-22 11:31] LABS: Troponin-I High Sensitivity < 2.7 ng/L (<3.5-17.0)
[2023-07-22 11:32] LABS: Alanine Aminotransferase 13 U/L (0-31); Albumin Level 4.2 g/dL (3.5-5.0); Alkaline Phosphatase 57 U/L (39-117); Anion Gap 11 (12-20); Aspartate Amino Transferase 14 U/L (5-31); Bilirubin Direct 0.1 mg/dL (0.0-0.5); Bilirubin Total 0.4 mg/dL (0.0-1.0); Blood Urea Nitrogen 12 mg/dL (9-16); C Reactive Protein 0.19 mg/dL (< or = 0.50); Calcium 9.3 mg/dL (8.4-10.2); Carbon Dioxide 27 mmol/L (22-29); Chloride 107 mmol/L (96-108); Creatinine Clr Calc Pharmacy 94.2; Estimated Glomerular Filt Rate > 60; Glucose Random 96 mg/dL (60-115); HCG Quantitative < 2 mIU/mL; Potassium 4.3 mmol/L (3.3-5.1); Sodium 141 mmol/L (135-145); Total Protein 7.2 g/dL (6.5-8.0)
[2023-07-22 12:31] LABS: Influenza A PCR NEGATIVE (Negative); Influenza B PCR NEGATIVE (Negative); Resp Syncy Virus RNA Qual PCR NEGATIVE (Negative); SARS COV2 PCR INHOUSE NEGATIVE (Negative)
[2023-07-22 13:23] LABS: Erythrocyte Sedimentation Rate 10 MM/HR (0-20)
== END 2023-07-22 14:34 | disposition home or self-care (01) ==
PROVIDERS: Emergency Provider Emergency Medicine; PCP Internal Medicine
DX: R51.9 Headache, unspecified (principal); M54.2 Cervicalgia
CPT/HCPCS: 0241U; 36415; 70450; 80048; 80076; 84484; 84702; 85025; 85652; 86140; 93005; 96372; 99284; J1885

== ENCOUNTER → 2023-07-22 10:38 | Outpatient (BNV) | payer OTHER, SELFPAY | PROVIDERS: Emergency Provider Emergency Medicine; PCP Internal Medicine; Visit Provider Internal Medicine Cardiovascular Disease | DX: R51.9 Headache, unspecified (principal) | CPT/HCPCS: 93010 ==

== ENCOUNTER 2024-05-13 14:12 | Outpatient (AMB) | payer BC, SELFPAY ==
[2024-05-13 14:18] VITALS: BP 110/80; BMI 32.7
--- NOTE | 2024-05-13 14:18 | MHC.PC.OV ---
Vital Signs 05/13/24 14:18 Height 5 ft 2 in Weight 179 lb BMI 32.7 BP 110/80 Blood Pressure Location Lt brachial Position Sitting Intake Visit Reasons: calf pain Pharmaceutical Sales Required: Yes Pharmaceutical Sales Language: Reheater Helper Name: Brenna Mccord Md Information Interpreted: non-clinical & clinical Accompanied by: Self / Same As Patient Allergies No Known Allergies Allergy (Verified 05/13/24 14:29) Medication List - Last Reconciled 05/13/24 by Brenna Mccord MD No Known Home Meds Tobacco use date assessed: 05/13/24 Dental Screening Dental Screen Date: 05/13/24 Did you have a dental visit in the last 12 months?: No Did you have a dental problem in the last 6 months where you did not have access to dental care?: No Was dental information given to patient?: Patient has dentist HPI HPI Comments History of Present Illness Details The patient is a 53-year-old female presenting with pain and restricted movement in the left knee. The issue began a few months ago, coinciding with a period without medical insurance coverage. The patient describes the pain as originating behind the knee, exacerbated upon standing after sitting, and persistent during attempts to extend the knee. The sensation results in difficulty walking, often requiring her to gently work the knee into motion before normal activity. The pain has impaired her ability to travel and engage in physical activities fully. There has been no prior mention of imaging, but the patient did consult for this issue now that insurance has stabilized through her 's employment. [facility] Medical History (Updated 05/13/24 @ 19:03 by Brenna Mccord MD) Physical exam Right knee pain Dizziness Pure hypercholesterolemia Knee pain Vitamin D deficiency Well woman exam Surgical History Hx of appendectomy Tubal ligation status History of cholecystectomy Family History Maternal Grandmother Diabetes Paternal Grandmother Hypertension Stroke Father Pernicious anemia Mother No problems noted. Maternal Aunt Breast cancer Sister No problems noted. Son No problems noted. Son No problems noted. Daughter No problems noted. Daughter No problems noted. Social History Housing: Apartment Alcohol intake: never Patient Tobacco Use Status: Never used Tobacco e-Cigarette/Vaping Use: Never Used Second Hand Smoke Exposure: No service: No Current occupational status: employed Current occupational exposures/hazards: No Sexual orientation: Straight/Heterosexual Gender identity: Female Cognitive needs: No Hearing needs: No Vision needs: No Female Reproductive History Menstrual Age of Menarche: 10 Questionnaire PHQ-9 Over the last 2 weeks, how often have you been bothered by any of the following problems? 1. Little interest or pleasure in doing things: not at all 2. Feeling down, depressed, or hopeless: not at all 3. Trouble falling or staying asleep, or sleeping too much: not at all 4. Feeling tired or having little energy: not at all 5. Poor appetite or overeating: not at all 6. Feeling bad about yourself - or that you are a failure or have let yourself or your family down: not at all 7. Trouble concentrating on things, such as reading the newspaper or watching television: not at all 8. Moving or speaking so slowly that other people could have noticed. Or the opposite - being so fidgety or restless that you have been moving around a lot more than usual: not at all 9. Thoughts that you would be better off or of hurting yourself in some way: not at all Total score: 0 Depression Screening Interpretation: Negative Depression Screening Done: Yes 71025 - PHQ-9 Billing: Yes Source: Developed by Drs. Nicolas Delgadillo, Jeny Villarreal, Morgan Traylor and colleagues, with an educational kalpana from [employer]. Thrive Questionnaire Date Thrive assessed: 05/13/24 I am a: Patient What is your living situation today?: I have a steady place to live Within the past 12 months, did the food you bought not last and you didn't have the money to get more?: Never true Within the past 12 months, did you worry whether your food would run out before you got money to buy more?: Never true Do you have trouble paying for medicines?: No Do you have trouble getting transportation to medical appointments?: No Do you have trouble paying your heating and electricity bill?: No Do you have trouble taking care of your child, family member or friend?: No Do you have trouble with day-to-day activities such as bathing, preparing meals, shopping, managing finances, etc.?: No Are you currently unemployed and looking for a job?: No Are you interested in more education?: No Please select the resources that you would like help with: None Currently or been in a relationship where the following occur: No concerns reported THRIVE Score: 0 AUDIT C Alcohol Use Questionnaire (AUDIT-C) 1. How often do you have a drink containing alcohol?: Never Total Score: 0 Score Reviewed/Action Taken: No MILAD-7 AMB Questionnaire MILAD-7 Date MILAD - 7 assessed: 05/13/24 Feeling nervous, anxious, or on edge: 0 = Not at all Not being able to stop or control worryin = Not at all Worrying too much about different things: 0 = Not at all Trouble relaxin = Not at all Being so restless that it is hard to sit still: 0 = Not at all Becoming easily annoyed or irritable: 0 = Not at all Feeling afraid as if something awful might happen: 0 = Not at all Total MILAD-7 score (0-4 normal; 5-9 mild; 10-14 moderate; 15-21 severe): 0 Source: Developed by Drs. Nicolas Delgadillo, Jeny Villarreal, Morgan Traylor and colleagues, with an educational kalpana from [employer]. MILAD-7 Assessment Billing MILAD-7 Assessment Tool: MILAD-7 Assessment 60619 Review of Systems Const All systems reviewed & are unremarkable except as noted in HPI and below Card Denies chest pain at rest, Denies chest pain with activity, Denies edema, Denies irregular heart rhythm, Denies claudication, Denies dyspnea, Denies dyspnea on exertion, Denies orthopnea, Denies paroxysmal nocturnal dyspnea and Denies slow heart rate Resp Denies cough, Denies dyspnea and Denies dyspnea on exertion GI Denies abdominal pain, Denies change in bowel habits, Denies excessive flatus, Denies nausea and Denies vomiting Denies urinary incontinence, Denies urinary hesitancy and Denies urinary urgency Physical exam (Primary Care) Vital Signs: Last Vital Signs BP 110/80 05/13/24 14:18 BMI result Body Mass Index 32.7 Tobacco/Smoking Status: Tobacco use Status Tobacco use date assessed 05/13/24 05/13/24 14:24 Patient Tobacco Use Status Never used Tobacco 05/13/24 14:24 e-Cigarette/Vaping Use Never Used 05/13/24 14:24 PHQ-9: PHQ-9 Score PHQ-9: Total score 0 05/13/24 14:37 Depression Screening Interpretation: Negative Thrive Assessment: Date of Thrive Assessment Date Thrive assessed 05/13/24 05/13/24 14:24 Currently or been in a relationship where the following occur: No concerns reported Resp Effort & Inspection: normal respiratory effort Auscultation: clear to auscultation bilaterally Cardio Jugular venous distension: no JVD Rate: regular rate Rhythm: regular rhythm Heart sounds: S1 normal heart sound present and S2 normal heart sound present Extrem General: Yes full ROM Office Procedures Flu Questionnaire Does the patient have a severe egg allergy?: No Immunizations Fluarix Triv [id number] (PF) 45 mcg (15 mcg x 3)/0.5 mL IM syringe Performing Provider: Brenna Mccord MD [facility] Documented (not given) by: CRUZ Hewitt on 05/13/24 14:38 Reason Not Given: Patient Refused Coding Level of Care Code Est Pt Level 3 (02566) Complex EM visit Add On G2211 Diagnoses Chronic pain of left knee M25.562; G89.29 Chronicity: chronic Additional Codes MILAD-7 Assessment Billing - MILAD-7 Assessment Tool: MILAD-7 Assessment 70909 ([id number]) PHQ-9 - 33292 - PHQ-9 Billing: Yes ([id number]) Time Spent (min) 19 Assessment & Plan Assessment & Plan (1) Left knee pain: Code(s): M25.562 - Pain in left knee Category: Medical Qualifiers: Chronicity: chronic Qualified Code(s): M25.562 - Pain in left knee; G89.29 - Other chronic pain Plan - Order an X-ray for the left knee to identify potential structural abnormalities. - Consider referral to orthopedics for further assessment of a possible Bolden's Cyst. - Schedule a follow-up appointment for further evaluation and to discuss imaging results. Patient was informed and verbally consented to the use of an ambient scribe for clinic note documentation during this visit. I discussed with the patient the probable presence of a Bolden's Cyst behind the left knee which may cause the pain and movement restrictions she is experiencing. We covered the usual clinical presentation of Bolden's Cysts, noting that they often are incidental findings and not always symptomatic. I explained that an X-ray has been ordered to understand better any potential structural issues. I referred her to orthopedics for further exploration, given her limited function and the prolonged nature of her symptoms. I assured her the orthopedic consultation could involve additional imaging, like MRI, if required. I advised her on follow-ups to reassess her symptoms and response to any interventions suggested by orthopedics. Orders: Orders Influenza [id number] Immunization Today Z23 - Encounter for immunization XR knee LT 2V Today M25.562 - Pain in left knee Referrals Orthopedics Referral M25.562 - Pain in left knee Patient Instructions: - Obtain an X-ray of the left knee as scheduled. - Attend the orthopedic consultation as planned. - Monitor symptoms and report any worsening pain or additional symptoms. - Follow-up in the indicated timeframe to discuss imaging results and any further management needed.
== END 2024-05-13 14:37 | disposition home or self-care (01) ==
PROVIDERS: PCP Internal Medicine; Visit Provider Internal Medicine
DX: M25.562 Pain in left knee (principal); G89.29 Other chronic pain; Z23 Encounter for immunization

== ENCOUNTER → 2024-05-13 14:12 | Outpatient (BNVA) | payer BC, SELFPAY | PROVIDERS: PCP Internal Medicine; Visit Provider Internal Medicine | DX: M25.562 Pain in left knee (principal); G89.29 Other chronic pain; Z28.21 Immunization not carried out because of patient refusal | CPT/HCPCS: 90471; 96127 ==

== ENCOUNTER → 2024-05-24 12:51 | Outpatient (BNV) | payer BC, SELFPAY | PROVIDERS: PCP Internal Medicine; Visit Provider Radiology Diagnostic Radiology | DX: M25.462 Effusion, left knee (principal); M17.12 Unilateral primary osteoarthritis, left knee | CPT/HCPCS: 73560 ==

== ENCOUNTER 2024-06-29 10:18 | Outpatient (REF) | payer BC, SELFPAY ==
--- NOTE | ~2024-06-29 | US_ITS ---
EXAMINATION: US PELVIS TRANSABDOMINAL AND TRANSVAGINAL HISTORY: D21.9 - Benign neoplasm of connective and other soft tissue, unspecified COMPARISON: Comparison is made with the prior examination dated 01/10/2023. TECHNIQUE: Transabdominal and endovaginal real-time 2D rahman-scale ultrasound was performed. Color Doppler was also performed. FINDINGS: Uterus: The uterus is normal in size, measuring 8.0 x 4.5 x 5.6 cm. Myometrium demonstrates heterogeneous echotexture. Again seen are anterior uterine fibroids measuring 2.1 x 1.9 x 2.1 cm (previously 1.8 x 1.4 x 1.5 cm), and 1.4 x 1.2 x 1.4 cm (previously 0.9 x 0.8 x 1.1 cm). There are nabothian cysts in the cervix. Endometrium: The endometrial stripe measures 4 mm in thickness. Right ovary: The right ovary measures 2.4 x 1.2 x 1.7 cm. The right ovary is normal in size and echotexture. Left ovary: The left ovary measures 2.7 x 1.5 x 1.9 cm. The left ovary is normal in size and echotexture. Color Doppler analysis of the bilateral ovarian arteries and veins is normal. Pelvic fluid: none. US/US pelvic and transvaginal IMPRESSION: Fibroid uterus as described. Electronically signed by: Nicolas Trejo MD 06/29/2024 02:18 PM EDT
== END 2024-06-29 10:19 | disposition home or self-care (01) ==
LOC: HO.US 10:18
PROVIDERS: PCP Internal Medicine; Visit Provider Obstetrics & Gynecology
DX: D21.9 Benign neoplasm of connective and other soft tissue, unspecified (principal)
CPT/HCPCS: 76830; 76856

== ENCOUNTER → 2024-06-29 10:20 | Outpatient (BNV) | payer BC, SELFPAY | PROVIDERS: PCP Internal Medicine; Visit Provider Radiology Diagnostic Radiology | DX: D25.9 Leiomyoma of uterus, unspecified (principal) | CPT/HCPCS: 76830; 76856 ==

== ENCOUNTER 2024-07-01 09:15 | Outpatient (REF) | payer BC, SELFPAY ==
--- NOTE | ~2024-07-01 | XR_ITS ---
CLINICAL HISTORY: M25.561 - Pain in right knee AP view of both knees Comparison: 05/24/2024 01:08 PM EST: CR 12:13 PM EST: CR Findings: No fractures or dislocations. Mild medial compartment joint space narrowing bilaterally. No joint effusion. No radiopaque foreign body. IMPRESSION: Mild medial compartment joint space narrowing bilaterally. This document has been electronically signed by: Cecilio Rojas MD on 07/02/2024 12:14:20
--- NOTE | ~2024-07-01 | XR_ITS ---
CLINICAL HISTORY: M25.562 - Pain in left knee 1 view left knee Comparison: 05/24/2024 01:08 PM EST: CR Findings: Santiago view of the patella demonstrates mild joint space narrowing along the medial aspect of the patellofemoral joint. There is no dislocation or subluxation. No fracture. IMPRESSION: Mild degenerative changes. No fracture or dislocation. This document has been electronically signed by: Cecilio Rojas MD on 07/02/2024 12:14:08
== END 2024-07-01 09:16 | disposition home or self-care (01) ==
LOC: HO.HOSX 09:15
PROVIDERS: Visit Provider Physician Assistant
DX: M25.561 Pain in right knee (principal); M25.562 Pain in left knee
CPT/HCPCS: 20610; 73560; J1010; J2003

== ENCOUNTER 2024-07-01 10:42 | Outpatient (AMB) | payer BC, SELFPAY ==
--- NOTE | 2024-07-01 11:12 | MHC.OFFVIS ---
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 patient reports ongoing pain for a couple months. No hx of injury. She notices that her pain is mainly behind the knee. SHe states that her pain is worse when she is getting up from a sitting position and she had to warm it up before she starts walking. Patient has tried Tylenol arthritis with mild relef. 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 Abraham Seth is a 53-year-old female who presents to the office today for evaluation of atraumatic left knee pain. She reports that the majority of her pain is located in the posterior aspect of the knee. Pain has been present for the past 3 months. She has tried Tylenol Arthritis with little relief. She reports that her pain is worse when she is going from a sitting to standing position. [facility] Medical History Physical exam Right knee pain Dizziness Pure hypercholesterolemia Knee pain Vitamin D deficiency Well woman exam Surgical History Hx of appendectomy Tubal ligation status History of cholecystectomy Family History Maternal Grandmother Diabetes Paternal Grandmother Hypertension Stroke Father Pernicious anemia Mother No problems noted. Maternal Aunt Breast cancer Sister No problems noted. Son No problems noted. Son No problems noted. Daughter No problems noted. Daughter No problems noted. 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 Current occupational exposures/hazards: No Sexual orientation: Straight/Heterosexual Gender identity: Female Cognitive needs: No Hearing needs: No Vision needs: No Female Reproductive History Menstrual Age of Menarche: 10 Review of Systems Const All systems reviewed & are unremarkable except as noted in HPI and below Physical Exam Const General: cooperative, healthy appearing and no acute distress Resp Effort & Inspection: normal respiratory effort and able to speak in complete sentences Cardio Rate: regular rate Peripheral pulses: Peripheral pulses 2+ throughout Skin Lesions: no lesions Rashes: no rashes Extrem Other: Left knee: Normal to inspection. No ecchymosis, erythema, or joint effusion. No tenderness to palpation along the medial or lateral joint lines. Tenderness to palpation in the popliteal fossa.Full knee extension and flexion. crepitus felt with range of motion. Negative Toro's. NVI. Office Procedures AMB Joint Injection/Aspiration Joint Injection/Aspiration Primary Site: left knee Prep: site was prepped using aseptic technique, ethochloride spray was applied and injection warnings given Injected: 80 mg of, DepoMedrol, with 8 mL of (2% plain lido ) and in the joint Approach Used: anterolateral Procedure: The patient tolerated the procedure well, but had some pain with the injection and there was some relief with the local anesthesia Coding 41639 - Large joint Procedure code (CPT) selection complete Assessment & Plan Assessment & Plan (1) Osteoarthritis of left knee: Code(s): M17.12 - Unilateral primary osteoarthritis, left knee Category: Medical (2) Synovial cyst of popliteal space [Bolden], left knee: Code(s): M71.22 - Synovial cyst of popliteal space [Bolden], left knee Category: Medical Plan The patient was offered a cortisone injection in the left knee with 80 mg of DepoMedrol. The patient was explained the risks, benefits, and alternatives to receiving this injection. After receiving consent for the injection, the patient had the procedure done while in the office today. The patient tolerated the procedure well with no complications. Due to the patient?s history of diabetes, they were instructed to monitor their blood glucose level. The patient was informed that they could see a rise in their numbers and if the numbers became too high, they were instructed to call their PCP. The patient was also informed that they could have facial flushing as a side effect of the injection, but this will pass. Follow-up will be p.r.n., or sooner if needed X-rays of the left knee which were obtained while in the office today and were reviewed by me, Mady Stewart PA-C, revealed osteoarthritis with no acute fracture or dislocation. Orders: Orders XR knee RT 1V Today M25.561 - Pain in right knee XR knee LT 2V Today M25.562 - Pain in left knee Coding Level of Care Code New Pt Level 3 (76821) Diagnoses Osteoarthritis of left knee M17.12 Synovial cyst of popliteal space [Bolden], left knee M71.22 CPT Codes Coding - 54046 Large joint: 48034 - Large joint ([id number])
== END 2024-07-01 11:50 | disposition home or self-care (01) ==
LOC: HO.HOS 10:42
PROVIDERS: PCP Internal Medicine; Visit Provider Physician Assistant
DX: M17.12 Unilateral primary osteoarthritis, left knee (principal); M71.22 Synovial cyst of popliteal space [Baker], left knee
CPT/HCPCS: 20610; 99203

== ENCOUNTER → 2024-07-01 10:45 | Outpatient (BNV) | payer BC, SELFPAY | PROVIDERS: Visit Provider Radiology Vascular & Interventional Radiology | DX: M25.561 Pain in right knee (principal); M25.562 Pain in left knee | CPT/HCPCS: 73560 ==

== ENCOUNTER 2024-09-23 09:34 | Outpatient (AMB) | payer BC, SELFPAY ==
--- NOTE | 2024-09-23 09:34 | MHC.OFFVIS ---
Intake Visit Reasons: US follow up/DO NOT RS Watch Hairspring Assembler Required: Yes Watch Hairspring Assembler Language: Office Equipment Technician Services: Watch Hairspring Assembler Present (in person) Watch Hairspring Assembler Name: Erika ARROYO Information Interpreted: non-clinical & clinical Allergies No Known Allergies Allergy (Verified 09/23/24 09:34) HPI Comments Details: The patient scheduled a telehealth visit for ultrasound follow-up regarding uterine myomas. No complaints no pelvic pain or pressure . Ultrasound done in 07/13 showed the following: Uterus: The uterus is normal in size, measuring 8.0 x 4.5 x 5.6 cm. Myometrium demonstrates heterogeneous echotexture. Again seen are anterior uterine fibroids measuring 2.1 x 1.9 x 2.1 cm (previously 1.8 x 1.4 x 1.5 cm), and 1.4 x 1.2 x 1.4 cm (previously 0.9 x 0.8 x 1.1 cm). There are nabothian cysts in the cervix. Endometrium: The endometrial stripe measures 4 mm in thickness. Right ovary: The right ovary measures 2.4 x 1.2 x 1.7 cm. The right ovary is normal in size and echotexture. Left ovary: The left ovary measures 2.7 x 1.5 x 1.9 cm. The left ovary is normal in size and echotexture. Color Doppler analysis of the bilateral ovarian arteries and veins is normal. Pelvic fluid: none The patient had an episode of vaginal bleeding for 2 days prior to the pelvic ultrasound Last co testing in 04/11 was negative [facility] Medical History Physical exam Right knee pain Dizziness Pure hypercholesterolemia Knee pain Vitamin D deficiency Well woman exam Surgical History Hx of appendectomy Tubal ligation status History of cholecystectomy Family History Maternal Grandmother Diabetes Paternal Grandmother Hypertension Stroke Father Pernicious anemia Mother No problems noted. Maternal Aunt Breast cancer Sister No problems noted. Son No problems noted. Son No problems noted. Daughter No problems noted. Daughter No problems noted. 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 Current occupational exposures/hazards: No Sexual orientation: Straight/Heterosexual Gender identity: Female Cognitive needs: No Hearing needs: No Vision needs: No Female Reproductive History Menstrual Age of Menarche: 10 Review of Systems Const All systems reviewed & are unremarkable except as noted in HPI and below Reports as per HPI and Reports no additional complaints GI Reports no additional complaints Reports no additional complaints Telehealth Telehealth Telehealth Platform: Telephone Location of provider rendering services: practice address Location of patient: address on file Patient Identification confirmed using: Name, : Yes Telehealth method: video Patient verbally consented to treatment: Yes Patient verbally consented to billing insurance company: Yes Patient informed of any privacy concerns related to visit: Yes Minutes spent on Phone/Video with Pt.: 7 Assessment & Plan Assessment & Plan (1) Uterine myoma: Code(s): D25.9 - Leiomyoma of uterus, unspecified Category: Medical Plan: Discussed with the patient the findings on pelvic ultrasound & the risk of myosarcoma; in addition reviewed with the patient that malignancy and pre malignancy cannot be ruled out without hysterectomy for pathological evaluation ; furthermore, explained to the patient the limitation of pelvic ultrasound and endometrial biopsy in the setting. Discussed with the patient the options of treatment including expectant management versus hysterectomy; the pros and cons, risks benefits of each approach were discussed with the patient including the fact that in cases of myosarcoma, surgical treatment can lead to early diagnosis and positively affects the prognosis; after further discussion, the patient decided to proceed with expectant management. Will repeat pelvic ultrasound periodically. Instructions given to patient to call in case any of the following occurs: pressure symptoms, abnormal uterine bleeding, pelvic pain; and to schedule a six-months pelvic ultrasound (order placed) and a follow-up appointment . All questions answered, the patient verbalized understanding and agreed with the plan . (2) Postmenopausal bleeding: Code(s): N95.0 - Postmenopausal bleeding Category: Medical Plan: Discussed with the patient the differential diagnosis of post menopausal bleeding with normal pelvic exam including but not limited to, endometrial hyperplasia, cancer, polyps and other causes; recent pelvic ultrasound measure of the endometrial stripe was 4 mm; recommended with the patient to schedule an appointment for an evaluation and possible endometrial sampling. Instructed the patient to schedule an ultrasound with a follow-up appointment in 2 weeks. All questions answered, the patient verbalized understanding and agreed with the plan. This note was generated with a voice recognition program. Some errors may have been overlooked during the review of this note. Sometimes these errors may affect the content or meaning of a given sentence. I spent a total of 20 minutes reviewing the chart, talking to the patient via video and documenting in the medical record. Orders: Orders US pelvic and transvaginal 6 Months D25.9 - Leiomyoma of uterus, unspecified Coding Level of Care Code Tele Est Pt Level 3 (77609) Diagnoses Uterine myoma D25.9 Postmenopausal bleeding N95.0
== END 2024-09-23 10:05 | disposition home or self-care (01) ==
LOC: HO.HWS 09:34
PROVIDERS: Visit Provider Obstetrics & Gynecology
DX: D25.9 Leiomyoma of uterus, unspecified (principal); N95.0 Postmenopausal bleeding
CPT/HCPCS: 99213

== ENCOUNTER 2024-10-07 08:57 | Outpatient (AMB) | payer BC, SELFPAY ==
--- NOTE | 2024-10-07 09:00 | MHC.OFFVIS ---
Vital Signs 10/07/24 09:01 Height 5 ft 2 in Intake Visit Reasons: PMB/pelvic exam per Esthetician And Manager Medical Spa Required: Yes Esthetician And Manager [employer] Language: Furniture Builder Services: Esthetician And Manager Medical Spa Present (in person) Esthetician And Manager Medical Spa Name: Erika ARROYO Information Interpreted: non-clinical & clinical Automobile Tire Builder: Automobile Tire Builder Present (Erika ARROYO) Accompanied by: Self / Same As Patient Allergies No Known Allergies Allergy (Verified 10/07/24 09:02) Post menopausal: Yes HPI Comments Details: Presenting for evaluation of postmenopausal bleeding. The patient states that she taken herbal supplements prior to the episode of bleeding. Endometrial stripe 4 mm by ultrasound. The patient was counseled about the myomas with mild increase in size, decided to proceed with expectant management pelvic ultrasound scheduled in six-months with a follow-up appointment. Last co testing 2021 was negative [facility] Medical History Physical exam Right knee pain Dizziness Pure hypercholesterolemia Knee pain Vitamin D deficiency Well woman exam Surgical History Hx of appendectomy Tubal ligation status History of cholecystectomy Family History Maternal Grandmother Diabetes Paternal Grandmother Hypertension Stroke Father Pernicious anemia Mother No problems noted. Maternal Aunt Breast cancer Sister No problems noted. Son No problems noted. Son No problems noted. Daughter No problems noted. Daughter No problems noted. Social History Housing: Apartment Alcohol intake: never Patient Tobacco Use Status: Never used Tobacco e-Cigarette/Vaping Use: Never Used Second Hand Smoke Exposure: No service: No Current occupational status: employed Current occupation: [employer] Current occupational exposures/hazards: No Sexual orientation: Straight/Heterosexual Gender identity: Female Cognitive needs: No Hearing needs: No Vision needs: No Female Reproductive History Menstrual Age of Menarche: 10 control method: permanent sterilization Menopause type: natural Review of Systems Const All systems reviewed & are unremarkable except as noted in HPI and below Physical Exam General: Yes no CVA tenderness External Female Exam: normal external appearance and normal appearance of the urethra Speculum Exam - Vagina: normal appearance of the vagina, normal palpation, no lesions and no masses Speculum Exam - Cervix: normal appearance of the cervix, normal palpation, no lesions, no masses and nontender Bimanual exam- vagina & uterus: normal bimanual exam, normal palpation, uterine size normal, normal palpation, uterine shape normal, No Cervical tenderness present and non-tender Bimanual Exam- Adnexa, other: normal adnexae Back/Spine/Pelvis Back: no CVA tenderness Office Procedures Endometrial Biopsy Details: The patient was counseled regarding the indication and benefits of endometrial sampling to rule out endometrial pathology including not limited to endometrial hyperplasia or endometrial cancer and others; The alternatives (Either do nothing vs. hysteroscopy D&C) & the risks were discussed with the patient including but not limited: pain, uterine perforation, bleeding, infection, possible injury to bladder, bowel, ureter, possible need for blood transfusion with all its possible risks. The patient verbalized understanding all questions answered and signed consent. The patient was placed into the dorsal lithotomy position; a speculum was inserted in the vagina. Using aseptic technique for the procedure, the cervix was cleansed with Betadine. The anterior lip of the cervix was grasped with a single tooth tenaculum. The uterus was sounded to 7 cm with a 4 mm Pipelle was used. Tissues samples were obtained and placed in formalin, in a patient labeled container and sent to the pathology department. At the end of the procedure, there was minimal bleeding noted The patient tolerated the procedure well and was discharged in good condition with the following instructions: Nothing in the vagina until the bleeding stops. No sex until the bleeding stops, to call if any of the following occurs: fever (>100.4), flu-like symptoms, abdominal pain, heavy bleeding, four smelling vaginal discharge. The patient was instructed to schedule a Follow up appointment in 2 weeks to discuss pathology results of the biopsy and treatment options. This note was generated with a voice recognition program. Some errors may have been overlooked during the review of this note. Sometimes these errors may affect the content or meaning of a given sentence. [id number] Biopsy Assessment & Plan Assessment & Plan (1) Postmenopausal bleeding: Code(s): N95.0 - Postmenopausal bleeding Category: Medical Plan: Discussed with the patient the results of the pelvic ultrasound showing an endometrial stripe thickness of for mm. Explained to the patient with an endometrial stripe of 4 mm &/or less, there is a high negative predictive value in detecting endometrial pathology including endometrial hyperplasia, polyps or malignancy. But since the patient took a supplement prior to the episodes of vaginal bleeding recommended endometrial biopsy to rule out endometrial pathology including endometrial hyperplasia and/or malignancy Discussed with the patient the sensitivity, specificity, and positive and the negative predictive value of using ultrasound in detecting endometrial pathology. EMB done, see procedure Orders: Orders AMB Endometrial Biopsy Today N95.0 - Postmenopausal bleeding Coding Level of Care Code Est Pt Level 3 (30527) Procedure Only Diagnoses Postmenopausal bleeding N95.0 CPT Codes Endometrial Biopsy - CPT: 01775-[id number] Biopsy ([id number])
== END 2024-10-07 09:40 | disposition home or self-care (01) ==
LOC: HO.HWS 08:57
PROVIDERS: Visit Provider Obstetrics & Gynecology
DX: N95.0 Postmenopausal bleeding (principal)
CPT/HCPCS: 58100; 99213

== ENCOUNTER 2024-10-07 08:57 | Outpatient (REF) | payer BC, SELFPAY | END 2024-10-07 08:58 | disposition home or self-care (01) | LOC: HO.LNP 08:57 | PROVIDERS: Visit Provider Obstetrics & Gynecology | DX: N95.0 Postmenopausal bleeding (principal) | CPT/HCPCS: 58100; 88305 ==

== ENCOUNTER 2024-11-09 10:56 | Outpatient (AMB) | payer BC, SELFPAY ==
--- NOTE | 2024-11-09 11:00 | MHC.OFFVIS ---
Vital Signs 11/09/24 11:03 Height 5 ft 2 in Weight 184 lb BMI 33.7 Intake Visit Reasons: emb results Marketing Research Intern Required: Yes Marketing Research Intern Services: Marketing Research Intern Present Marketing Research Intern Name: Erika Information Interpreted: clinical only Accompanied by: Self / Same As Patient Allergies No Known Allergies Allergy (Verified 10/07/24 09:02) HPI Comments Details: The patient is presenting after endometrial biopsy. The patient has no complaints, no vaginal bleeding, no feverishness chills or abdominal pain. The endometrial biopsy pathology report showed the following: Endometrium, biopsy: Strips of benign atrophic endometrium, and benign endocervical glandular and squamous epithelium; no atypia or carcinoma PFSH Medical History Physical exam Right knee pain Dizziness Pure hypercholesterolemia Knee pain Vitamin D deficiency Well woman exam Surgical History Hx of appendectomy Tubal ligation status History of cholecystectomy Family History Maternal Grandmother Diabetes Paternal Grandmother Hypertension Stroke Father Pernicious anemia Mother No problems noted. Maternal Aunt Breast cancer Sister No problems noted. Son No problems noted. Son No problems noted. Daughter No problems noted. Daughter No problems noted. Social History Housing: Apartment Alcohol intake: never Patient Tobacco Use Status: Never used Tobacco e-Cigarette/Vaping Use: Never Used Second Hand Smoke Exposure: No service: No Current occupational status: employed Current occupation: [employer] Current occupational exposures/hazards: No Sexual orientation: Straight/Heterosexual Gender identity: Female Cognitive needs: No Hearing needs: No Vision needs: No Female Reproductive History Menstrual Age of Menarche: 10 Review of Systems Const All systems reviewed & are unremarkable except as noted in HPI and below Reports as per HPI and Reports no additional complaints GI Reports no additional complaints Reports no additional complaints Physical Exam Vital Signs: BMI result Body Mass Index 33.7 Assessment & Plan Assessment & Plan (1) Postmenopausal bleeding: Code(s): N95.0 - Postmenopausal bleeding Category: Medical Plan: Discussed with the patient the results of the endometrial biopsy. Discussed with the patient the sensitivity, specificity, positive and negative predictive value, of endometrial biopsy in detecting endometrial pathology including but not limited to endometrial hyperplasia, cancer and other pathology; instructed the patient to call in case vaginal bleeding recurs, the next step will be to proceed with a diagnostic hysteroscopy/D&C for further endometrial sampling evaluation to rule out endometrial pathology. All questions answered and the patient verbalized understanding and agreed with the plan. Coding Level of Care Code Est Pt Level 3 (11743) Diagnoses Postmenopausal bleeding N95.0
[2024-11-09 11:03] VITALS: BMI 33.7
--- OUTSIDE RECORDS SUMMARY | 2024-11-09 12:13 | XMS_ITS | Encounter Summary ---
Author Organization [facility] Address [address] [place] [phone] Phone Care Team Providers Care Teletray Operator Name Role Phone Brenna Rodriguez MD Primary Care Provid er Encounter Details Date Type Department Care Team (Late st Contact Info) Description 01/30/2021 Procedure Pass OR Admitting Dept - Virtual Department [address] [place] [id number] Social History Tobacco Use Types Packs/Day Years Used Date Smoking Tobacco: Never Smokeless Tobacco: Never Comments Unknown Sex and Gender Information Value Date Recorded Sex Assigned at Not on file Legal Sex Female 10:13 PM EDT Gender Identity Not on file Sexual Orientation Not on file documented as of this encounter Plan of Treatment Not on file documented as of this encounter Visit Diagnoses Not on filedocumented in this encounter Care Teams Teletray Operator Relationship Specialty Start Date End Date Brenna Rodriguez MD [address] [place] [address] PCP - General Internal Medicine 01/29/21 documented as of this encounter Additional Source Comments The information contained in this document represents components of the legal health record. It is not the complete legal health record.[facility]
== END 2024-11-09 11:15 | disposition home or self-care (01) ==
LOC: HO.HWS 10:57
PROVIDERS: Visit Provider Obstetrics & Gynecology
DX: N95.0 Postmenopausal bleeding (principal)
CPT/HCPCS: 99213